=== PATIENT | female | born 1940 | race Caucasian/White ===

== ENCOUNTER 2021-03-21 04:57 | Inpatient (IN) | payer MEDICARE, OTHER ==
[~2021-03-21] VITALS: Ht 165.1 cm; Wt 61.3 kg
[~2021-03-21 04:57] MED LIST: DIOVAN; JANUVIA
[2021-03-21] MEDS ORDERED: FOSPHENYTOIN SODIUM 1,000 MGPE in SODIUM CHLORIDE 0.9% 100 ML IV ONE (05:15)
[2021-03-21] MEDS ORDERED: PHENYTOIN SODIUM 1,000 MG in SODIUM CHLORIDE 0.9% 150 ML IV ONE (05:15)
[2021-03-21] MEDS ORDERED: LORazepam 2 MG/ML VIAL IVP ONE ×3 (05:15→06:30)
[2021-03-21] MEDS ORDERED: SUCCINYLCHOLINE CHLORIDE 20 MG/ML 10 ML VIAL ONE (05:17)
[2021-03-21 05:20] LABS: BASOPHILS % (AUTO) 0.6 % (0.0-2.0); EOSINOPHILS % (AUTO) 1.3 % (1.0-6.0); HEMATOCRIT 36.4 % (36-46); LYMPHOCYTES # (AUTO) 2.3 K/uL (1.0-4.8); LYMPHOCYTES % (AUTO) 19.2 % (22.0-44.0); MEAN CORPUSCULAR HEMOGLOBIN 27.9 pg (26.0-34.0); MEAN CORPUSCULAR HGB CONC 32.8 G/dL (31.0-37.0); MEAN CORPUSCULAR VOLUME 85 fL (80-100); MONOCYTES # (AUTO) 0.6 K/uL (0.1-1.0); MONOCYTES % (AUTO) 4.6 % (2.0-9.0); NEUTROPHILS # (AUTO) 9.1 K/uL (1.8-7.7); NEUTROPHILS % (AUTO) 74.3 % (40.0-70.0); PLATELET COUNT (AUTO) 301 K/uL (150-450); RED BLOOD CELL COUNT(AUTO) 4.28 MIL/uL (4.00-5.20); RED CELL DISTRIBUTION WIDTH 13.6 % (11.5-14.5)
[2021-03-21 05:29] LABS: ANION GAP 12 mmol/L (8-16); CALCIUM, TOTAL 9.3 mg/dL (8.8-10.5); CARBON DIOXIDE 23 mmol/L (22-29); CHLORIDE 103 mmol/L (98-107); CREATININE 0.73 mg/dL (0.60-1.30); GLOMERULAR FILTR. RATE CALC > 60 mL/min (>60); GLUCOSE,RANDOM 193 mg/dL (70-110); POTASSIUM 3.6 mmol/L (3.5-5.1); SODIUM SERUM 138 mmol/L (136-145); UREA NITROGEN, BLOOD 18 mg/dL (7-18)
[2021-03-21] MEDS ORDERED: ETOMIDATE 2 MG/ML 10 ML VIAL IVP ONE (05:30)
[2021-03-21] MEDS ORDERED: SUCCINYLCHOLINE CHLORIDE 20 MG/ML 10 ML VIAL IVP ONE (05:30)
[2021-03-21 05:34] LABS: PROTHROMBIN TIME 10.9 SEC (9.4-11.6)
[2021-03-21] MEDS ORDERED: PROPOFOL 1000 MG/ISO-OSM 100 ML ONE (05:34)
[2021-03-21 05:35] LABS: ALANINE AMINOTRANSFERASE 22 U/L (12-78); ALBUMIN 2.9 g/dL (3.4-5.0); ALKALINE PHOSPHATASE 113 U/L (46-116); ASPARTATE AMINOTRANSFERASE 14 U/L (15-37); BILIRUBIN,TOTAL 0.5 mg/dL (0.1-1.0); TOTAL PROTEIN, SERUM 7.1 g/dL (6.4-8.2)
[2021-03-21 05:37] LABS: PHENYTOIN (DILANTIN) < 0.5 mcg/mL (10.0-20.0); VALPROIC ACID < 3 mcg/mL (50-100)
[2021-03-21 05:40] LABS: CARBAMAZEPINE (TEGRETOL) < 0.1 mcg/mL (4.0-12.0)
[2021-03-21] MEDS: PROPOFOL 1000 MG/ISO-OSM 100 ML IV PRN ×4 (05:45→19:47)
[2021-03-21 05:50] LABS: CREATINE KINASE, TOTAL ONLY 35 U/L (26-192); PHOSPHORUS 4.1 mg/dL (2.5-4.9)
[2021-03-21 05:55] LABS: ABG BASE EXCESS 1.6 mmol/L (-2.0-3.0); ABG CARBOXYHEMOGLOBIN 0.1 % (0.0-1.5); ABG HCO3 26.1 mmol/L (22.0-26.0); ABG METHEMOGLOBIN 0.3 % (0.0-1.5); ABG OXYGEN CONTENT 17.9 mL/dL (15.0-23.0); ABG OXYGEN SATURATION 99.2 % (95.0-98.0); ABG OXYHEMOGLOBIN 98.8 % (94.0-100.0); ABG PCO2 37 mmHg (35-45); ABG PH 7.459 (7.35-7.450); ABG TOTAL HEMOGLOBIN 11.9 G/dL (12.0-18.0); PO2, ARTERIAL BG 499.2 mmHg (71.0-79.0); SOURCE, BLOOD GAS ARTERIAL; TEMPERATURE, FAHRENHEIT, BG 98.6 FAHREN (96.0-98.6)
[2021-03-21 05:56] LABS: O2 DEVICE,BLOOD GAS VENTILATOR (ROOM AIR); PEEP,BG 5 cm H2O; SITE, BLOOD GAS RT RADIAL; SPONTANEOUS VT, BG 434 ml; VT, ABG 450 ml
[2021-03-21] MEDS ORDERED: METF-1211 PO (06:07)
[2021-03-21] MEDS ORDERED: POTA8CAP20 PO (06:07)
[2021-03-21] MEDS ORDERED: GABA-1181 PO (06:07)
[2021-03-21] MEDS ORDERED: HYDR25TA PO (06:07)
[2021-03-21] MEDS ORDERED: ELUX75TA PO (06:07)
[2021-03-21 06:32] LABS: COVID AG,FIA SOURCE NASAL SWAB
[2021-03-21 06:33] LABS: APPEARANCE,URINE CLEAR (CLEAR); BILIRUBIN,URINE NEGATIVE (NEGATIVE); GLUCOSE, URINE (UA) NEGATIVE (NEGATIVE); KETONES,URINE NEGATIVE (NEGATIVE); LEUKOCYTE ESTERASE ,URINE NEGATIVE (NEGATIVE); NITRATE,URINE NEGATIVE (NEGATIVE); OCCULT BLOOD,URINE NEGATIVE (NEGATIVE); PROTEIN,URINE NEGATIVE (NEGATIVE)
[2021-03-21 06:38] LABS: AMPHET/METH SCREEN,URINE NEGATIVE (NEGATIVE); BARBITURATE SCREEN, URINE NEGATIVE (NEGATIVE); BENZODIAZEPINES SCREEN,URINE NEGATIVE (NEGATIVE); CANNABINOID SCREEN,URINE NEGATIVE (NEGATIVE); COCAINE SCREEN,URINE NEGATIVE (NEGATIVE); METHADONE SCREEN, URINE NEGATIVE (NEGATIVE); OPIATE SCREEN,URINE NEGATIVE (NEGATIVE)
[2021-03-21 06:46] LABS: PHENCYCLIDINE SCREEN,URINE NEGATIVE (NEGATIVE)
[2021-03-21] MEDS ORDERED: BISACODYL 10 MG RECTAL RECTAL SUPPOSITORY PR PRN (10:15)
[2021-03-21] MEDS ORDERED: ONDANSETRON HCL 4 MG/2 ML VIAL IVP PRN (10:15)
[2021-03-21] MEDS ORDERED: DEXTROSE 50%-WATER 25 GM/50 ML SYRINGE IVP PRN (10:15)
[2021-03-21] MEDS ORDERED: LORazepam 2 MG/ML VIAL IVP PRN (10:15)
[2021-03-21 11:07] VITALS: BP 121/59
[2021-03-21 12:00] VITALS: BP 126/73
[2021-03-21] MEDS: PANTOPRAZOLE SODIUM 40 MG/VIAL IVP SCH (14:27)
[2021-03-21] MEDS: LevETIRAcetam 1,000 MG in DEXTROSE 5%-WATER 100 ML IV SCH (14:27)
[2021-03-21] MEDS ORDERED: PNEUMOCOCCAL VACCINE POLYVALENT 0.5 ML VIAL [PPSV23] IM. ONE (15:30)
[2021-03-21 16:00] VITALS: BP 127/73
[2021-03-21] MEDS ORDERED: ETOMIDATE 2 MG/ML 10 ML VIAL IV ONE (16:41)
[2021-03-21 16:47] LABS: GLUCOSE,POINT OF CARE 121 MG/DL (70-110)
[2021-03-21] MEDS: HEPARIN SODIUM,PORCINE 5,000 UNITS/ML VIAL SQ SCH ×2 (17:09→23:42)
[2021-03-21] MEDS: FentaNYL CIT 1000MCG/0.9% NACL 100 ML IV PRN (19:48)
[2021-03-21 20:00] VITALS: BP_SYST 103; BP_SYST 107; BP_DIAS 56
[2021-03-21 20:16] LABS: GLUCOSE,POINT OF CARE 139 MG/DL (70-110)
[2021-03-21] MEDS: ETHYL ALCOHOL 62% ANTISEPTIC NASAL INHALANT 0.6 ML AMPUL NASAL SCH (23:42)
[2021-03-21] MEDS: INSULIN LISPRO 100 UNITS/ML SQ PRN (23:55)
[2021-03-22] VITALS: BP 115/91
[2021-03-22] MEDS: LevETIRAcetam 1,000 MG in DEXTROSE 5%-WATER 100 ML IV SCH ×2 (01:02→12:49)
[2021-03-22] MEDS: PROPOFOL 1000 MG/ISO-OSM 100 ML IV PRN ×3 (01:25→23:19)
[2021-03-22 04:00] VITALS: BP 122/68
[2021-03-22 05:26] LABS: GLUCOSE,POINT OF CARE 155 MG/DL (70-110)
[2021-03-22] MEDS ORDERED: SODIUM CHLORIDE 0.9% 1,000 ML ONE ×2 (05:54→18:08)
[2021-03-22 05:56] LABS: GLUCOSE,POINT OF CARE 85 MG/DL (70-110)
[2021-03-22 06:21] LABS: ANION GAP 6 mmol/L (8-16); CALCIUM, TOTAL 6.1 mg/dL (8.8-10.5); CARBON DIOXIDE 20 mmol/L (22-29); CHLORIDE 116 mmol/L (98-107); CREATININE 0.32 mg/dL (0.60-1.30); GLUCOSE,RANDOM 83 mg/dL (70-110); PHOSPHORUS 2.3 mg/dL (2.5-4.9); SODIUM SERUM 142 mmol/L (136-145); UREA NITROGEN, BLOOD 8 mg/dL (7-18)
[2021-03-22 06:23] LABS: GLOMERULAR FILTR. RATE CALC > 60 mL/min (>60)
[2021-03-22 06:25] LABS: POTASSIUM 2.2 mmol/L (3.5-5.1)
[2021-03-22 07:31] LABS: BASOPHILS % (AUTO) 0.6 % (0.0-2.0); EOSINOPHILS % (AUTO) 0.9 % (1.0-6.0); HEMATOCRIT 26.9 % (36-46); LYMPHOCYTES # (AUTO) 1.2 K/uL (1.0-4.8); LYMPHOCYTES % (AUTO) 19.6 % (22.0-44.0); MEAN CORPUSCULAR HEMOGLOBIN 28.1 pg (26.0-34.0); MEAN CORPUSCULAR HGB CONC 32.9 G/dL (31.0-37.0); MEAN CORPUSCULAR VOLUME 85 fL (80-100); MONOCYTES # (AUTO) 0.5 K/uL (0.1-1.0); MONOCYTES % (AUTO) 8.7 % (2.0-9.0); NEUTROPHILS # (AUTO) 4.3 K/uL (1.8-7.7); NEUTROPHILS % (AUTO) 70.2 % (40.0-70.0); PLATELET COUNT (AUTO) 201 K/uL (150-450); RED BLOOD CELL COUNT(AUTO) 3.14 MIL/uL (4.00-5.20); RED CELL DISTRIBUTION WIDTH 13.9 % (11.5-14.5)
[2021-03-22 07:32] LABS: HEMOGLOBIN 8.8 g/dL (12.0-16.0)
[2021-03-22 08:00] VITALS: BP 148/66
[2021-03-22] MEDS: ASPIRIN 81 MG CHEWABLE TABLET NG SCH (08:07)
[2021-03-22] MEDS: PANTOPRAZOLE SODIUM 40 MG/VIAL IVP SCH (08:07)
[2021-03-22] MEDS: HEPARIN SODIUM,PORCINE 5,000 UNITS/ML VIAL SQ SCH (08:07)
[2021-03-22] MEDS: ETHYL ALCOHOL 62% ANTISEPTIC NASAL INHALANT 0.6 ML AMPUL NASAL SCH ×2 (08:08→21:28)
[2021-03-22] MEDS: POTASSIUM CHL 10 MEQ/WATER 50 ML IV PRN ×7 (08:08→21:26)
[2021-03-22] MEDS ORDERED: MAGNESIUM OXIDE 400 MG TABLET PO PRN (08:30)
[2021-03-22] MEDS ORDERED: MAGNESIUM SULFATE 2 GM/WATER 50 ML IV PRN (08:30)
[2021-03-22] MEDS ORDERED: MAGNESIUM SULFATE 4 GM/WATER 100 ML IV PRN (08:30)
[2021-03-22] MEDS ORDERED: ATORVASTATIN CALCIUM 20 MG TABLET NG SCH (09:00)
[2021-03-22 10:35] LABS: ALBUMIN 1.6 g/dL (3.4-5.0)
[2021-03-22 12:00] VITALS: BP 124/57
[2021-03-22 15:21] LABS: GLUCOSE,POINT OF CARE 116 MG/DL (70-110)
[2021-03-22 16:00] VITALS: BP 134/66
[2021-03-22] MEDS: ACETAMINOPHEN 325 MG TABLET PO PRN (17:07)
[2021-03-22] MEDS ORDERED: DOCUSATE SODIUM 100 MG CAPSULE PO PRN (17:15)
[2021-03-22] MEDS ORDERED: SENNA 187 MG TABLET PO PRN (17:15)
[2021-03-22] MEDS: INSULIN LISPRO 100 UNITS/ML SQ PRN (18:22)
[2021-03-22] MEDS ORDERED: POTASSIUM CHLORIDE 10% 40 MEQ/30 ML LIQUID UDCUP GT PRN (19:00)
[2021-03-22] MEDS ORDERED: POTASSIUM CHLORIDE 10% 40 MEQ/30 ML LIQUID UDCUP NG PRN (19:00)
[2021-03-22 20:00] VITALS: BP_SYST 92; BP_DIAS 53; BP_DIAS 62
[2021-03-22 20:11] LABS: GLUCOSE,POINT OF CARE 143 MG/DL (70-110)
[2021-03-22] MEDS: FentaNYL CIT 1000MCG/0.9% NACL 100 ML IV PRN (23:19)
[2021-03-23] VITALS (12 sets, daily range): BP systolic 85–135; BP diastolic 41–76
[2021-03-23] MEDS: LevETIRAcetam 1,000 MG in DEXTROSE 5%-WATER 100 ML IV SCH ×2 (01:39→13:42)
[2021-03-23 02:01] LABS: GLUCOSE,POINT OF CARE 119 MG/DL (70-110)
[2021-03-23 05:29] LABS: BASOPHILS % (AUTO) 1.3 % (0.0-2.0); EOSINOPHILS % (AUTO) 1.4 % (1.0-6.0); HEMATOCRIT 30.4 % (36-46); HEMOGLOBIN 10.6 g/dL (12.0-16.0); LYMPHOCYTES # (AUTO) 1.9 K/uL (1.0-4.8); LYMPHOCYTES % (AUTO) 21.4 % (22.0-44.0); MEAN CORPUSCULAR HEMOGLOBIN 29.1 pg (26.0-34.0); MEAN CORPUSCULAR HGB CONC 34.8 G/dL (31.0-37.0); MEAN CORPUSCULAR VOLUME 84 fL (80-100); MONOCYTES # (AUTO) 0.6 K/uL (0.1-1.0); MONOCYTES % (AUTO) 6.5 % (2.0-9.0); NEUTROPHILS % (AUTO) 69.4 % (40.0-70.0); PLATELET COUNT (AUTO) 244 K/uL (150-450); RED BLOOD CELL COUNT(AUTO) 3.63 MIL/uL (4.00-5.20); RED CELL DISTRIBUTION WIDTH 14.1 % (11.5-14.5)
[2021-03-23 05:38] LABS: ANION GAP 8 mmol/L (8-16); CALCIUM, TOTAL 8.4 mg/dL (8.8-10.5); CARBON DIOXIDE 22 mmol/L (22-29); CHLORIDE 106 mmol/L (98-107); CREATININE 0.54 mg/dL (0.60-1.30); GLUCOSE,RANDOM 145 mg/dL (70-110); POTASSIUM 3.2 mmol/L (3.5-5.1); SODIUM SERUM 136 mmol/L (136-145)
[2021-03-23 05:49] LABS: UREA NITROGEN, BLOOD 12 mg/dL (7-18)
[2021-03-23 05:51] LABS: GLOMERULAR FILTR. RATE CALC > 60 mL/min (>60)
[2021-03-23 06:26] LABS: GLUCOSE,POINT OF CARE 105 MG/DL (70-110)
[2021-03-23] MEDS: PANTOPRAZOLE SODIUM 40 MG/VIAL IVP SCH (08:50)
[2021-03-23] MEDS: ETHYL ALCOHOL 62% ANTISEPTIC NASAL INHALANT 0.6 ML AMPUL NASAL SCH ×2 (08:51→21:10)
[2021-03-23] MEDS: ASPIRIN 81 MG CHEWABLE TABLET NG SCH (08:51)
[2021-03-23 12:26] LABS: GLUCOSE,POINT OF CARE 112 MG/DL (70-110)
[2021-03-23] MEDS: PROPOFOL 1000 MG/ISO-OSM 100 ML IV PRN ×2 (14:00→21:09)
[2021-03-23] MEDS: FentaNYL CIT 1000MCG/0.9% NACL 100 ML IV PRN (14:01)
[2021-03-23 14:48] LABS: ANION GAP 12 mmol/L (8-16); CALCIUM, TOTAL 9.1 mg/dL (8.8-10.5); CARBON DIOXIDE 17 mmol/L (22-29); CHLORIDE 106 mmol/L (98-107); CREATININE 0.51 mg/dL (0.60-1.30); GLOMERULAR FILTR. RATE CALC > 60 mL/min (>60); GLUCOSE,RANDOM 134 mg/dL (70-110); POTASSIUM 4.6 mmol/L (3.5-5.1); SODIUM SERUM 135 mmol/L (136-145); UREA NITROGEN, BLOOD 13 mg/dL (7-18)
[2021-03-23] MEDS ORDERED: THIAMINE 100 MG TABLET PO ONE (15:45)
[2021-03-23 18:26] LABS: GLUCOSE,POINT OF CARE 120 MG/DL (70-110)
[2021-03-23] MEDS ORDERED: SODIUM CHLORIDE 0.9% 250 ML IV ONE (21:02)
[2021-03-23] MEDS: ATORVASTATIN CALCIUM 20 MG TABLET NG SCH (21:10)
[2021-03-24] VITALS (10 sets, daily range): BP systolic 99–133; BP diastolic 47–72
[2021-03-24] MEDS: LevETIRAcetam 1,000 MG in DEXTROSE 5%-WATER 100 ML IV SCH ×2 (01:02→13:28)
[2021-03-24] MEDS: FentaNYL CIT 1000MCG/0.9% NACL 100 ML IV PRN ×2 (04:02→17:22)
[2021-03-24 06:37] LABS: GLUCOSE,POINT OF CARE 108 MG/DL (70-110)
[2021-03-24] MEDS: INSULIN LISPRO 100 UNITS/ML SQ PRN (06:42)
[2021-03-24 06:46] LABS: GLUCOSE,POINT OF CARE 133 MG/DL (70-110)
[2021-03-24] MEDS: PROPOFOL 1000 MG/ISO-OSM 100 ML IV PRN ×2 (07:40→20:29)
[2021-03-24] MEDS: PANTOPRAZOLE SODIUM 40 MG/VIAL IVP SCH (08:00)
[2021-03-24] MEDS: THIAMINE 100 MG TABLET PO SCH (08:00)
[2021-03-24] MEDS: ETHYL ALCOHOL 62% ANTISEPTIC NASAL INHALANT 0.6 ML AMPUL NASAL SCH ×2 (08:01→20:28)
[2021-03-24] MEDS: ASPIRIN 81 MG CHEWABLE TABLET NG SCH (08:01)
[2021-03-24] MEDS: ACETAMINOPHEN 325 MG TABLET PO PRN ×2 (08:01→12:53)
[2021-03-24 10:09] LABS: BASOPHILS % (AUTO) 0.5 % (0.0-2.0); EOSINOPHILS % (AUTO) 1.9 % (1.0-6.0); HEMATOCRIT 31.8 % (36-46); HEMOGLOBIN 10.9 g/dL (12.0-16.0); LYMPHOCYTES % (AUTO) 12.1 % (22.0-44.0); MEAN CORPUSCULAR HEMOGLOBIN 28.6 pg (26.0-34.0); MEAN CORPUSCULAR HGB CONC 34.1 G/dL (31.0-37.0); MEAN CORPUSCULAR VOLUME 84 fL (80-100); MONOCYTES # (AUTO) 0.5 K/uL (0.1-1.0); MONOCYTES % (AUTO) 5.5 % (2.0-9.0); NEUTROPHILS # (AUTO) 6.7 K/uL (1.8-7.7); PLATELET COUNT (AUTO) 257 K/uL (150-450); RED BLOOD CELL COUNT(AUTO) 3.79 MIL/uL (4.00-5.20)
[2021-03-24 10:17] LABS: ANION GAP 10 mmol/L (8-16); CALCIUM, TOTAL 8.5 mg/dL (8.8-10.5); CARBON DIOXIDE 20 mmol/L (22-29); CHLORIDE 105 mmol/L (98-107); CREATININE 0.52 mg/dL (0.60-1.30); GLUCOSE,RANDOM 159 mg/dL (70-110); POTASSIUM 3.5 mmol/L (3.5-5.1); SODIUM SERUM 135 mmol/L (136-145); UREA NITROGEN, BLOOD 13 mg/dL (7-18)
[2021-03-24 10:19] LABS: MAGNESIUM 1.9 mg/dL (1.80-2.40); POTASSIUM 3.6 mmol/L (3.5-5.1)
[2021-03-24 10:21] LABS: GLOMERULAR FILTR. RATE CALC > 60 mL/min (>60)
[2021-03-24 16:30] LABS: APPEARANCE,URINE SL CLOUDY (CLEAR); BILIRUBIN,URINE PRELIM. POSITIVE (NEGATIVE); GLUCOSE, URINE (UA) NEGATIVE (NEGATIVE); KETONES,URINE >=80 mg/dL (NEGATIVE); LEUKOCYTE ESTERASE ,URINE SMALL (NEGATIVE); NITRATE,URINE POSITIVE (NEGATIVE); OCCULT BLOOD,URINE SMALL (NEGATIVE); PROTEIN,URINE TRACE (NEGATIVE)
[2021-03-24 16:59] LABS: BACTERIA,URINE Rare /HPF (None Seen); SQUAMOUS EPITHELIAL CELL,UR Few /LPF (None Seen)
[2021-03-24] MEDS ORDERED: DEXMEDETOMIDINE HCL 400 MCG in SODIUM CHLORIDE 0.9% 96 ML IV PRN (18:00)
[2021-03-24] MEDS: ATORVASTATIN CALCIUM 20 MG TABLET NG SCH (20:28)
[2021-03-24] MEDS: PIPERACILLIN/TAZO 3.375 GM/D5W 50 ML IV SCH (20:33)
[2021-03-24 20:57] LABS: GLUCOSE,POINT OF CARE 121 MG/DL (70-110)
[2021-03-24 20:57] LABS: GLUCOSE,POINT OF CARE 130 MG/DL (70-110)
[2021-03-25] VITALS (10 sets, daily range): BP systolic 97–122; BP diastolic 48–61
[2021-03-25] MEDS: LevETIRAcetam 1,000 MG in DEXTROSE 5%-WATER 100 ML IV SCH ×2 (01:24→13:11)
[2021-03-25] MEDS: PIPERACILLIN/TAZO 3.375 GM/D5W 50 ML IV SCH ×4 (04:00→19:40)
[2021-03-25] MEDS: PROPOFOL 1000 MG/ISO-OSM 100 ML IV PRN (04:01)
[2021-03-25] MEDS: ACETAMINOPHEN 325 MG TABLET PO PRN ×3 (04:11→17:21)
[2021-03-25 05:21] LABS: GLUCOSE,POINT OF CARE 150 MG/DL (70-110)
[2021-03-25] MEDS: INSULIN LISPRO 100 UNITS/ML SQ PRN ×3 (05:31→18:50)
[2021-03-25 05:32] LABS: BASOPHILS % (AUTO) 0.3 % (0.0-2.0); EOSINOPHILS % (AUTO) 0.9 % (1.0-6.0); HEMATOCRIT 30.1 % (36-46); HEMOGLOBIN 10.2 g/dL (12.0-16.0); LYMPHOCYTES # (AUTO) 1.1 K/uL (1.0-4.8); LYMPHOCYTES % (AUTO) 6.5 % (22.0-44.0); MEAN CORPUSCULAR HEMOGLOBIN 28.5 pg (26.0-34.0); MEAN CORPUSCULAR HGB CONC 33.9 G/dL (31.0-37.0); MEAN CORPUSCULAR VOLUME 84 fL (80-100); MONOCYTES # (AUTO) 0.7 K/uL (0.1-1.0); MONOCYTES % (AUTO) 4.1 % (2.0-9.0); PLATELET COUNT (AUTO) 252 K/uL (150-450); RED BLOOD CELL COUNT(AUTO) 3.59 MIL/uL (4.00-5.20); RED CELL DISTRIBUTION WIDTH 13.9 % (11.5-14.5)
[2021-03-25 05:36] LABS: NEUTROPHILS % (AUTO) 88.2 % (40.0-70.0)
[2021-03-25 05:52] LABS: ANION GAP 7 mmol/L (8-16); CALCIUM, TOTAL 8.5 mg/dL (8.8-10.5); CARBON DIOXIDE 23 mmol/L (22-29); CHLORIDE 102 mmol/L (98-107); CREATININE 0.61 mg/dL (0.60-1.30); GLUCOSE,RANDOM 180 mg/dL (70-110); PHOSPHORUS 3.2 mg/dL (2.5-4.9); POTASSIUM 3.5 mmol/L (3.5-5.1); SODIUM SERUM 132 mmol/L (136-145); UREA NITROGEN, BLOOD 15 mg/dL (7-18)
[2021-03-25 05:54] LABS: GLOMERULAR FILTR. RATE CALC > 60 mL/min (>60)
[2021-03-25] MEDS: ASPIRIN 81 MG CHEWABLE TABLET NG SCH (09:37)
[2021-03-25] MEDS: PANTOPRAZOLE SODIUM 40 MG/VIAL IVP SCH (09:37)
[2021-03-25] MEDS: ETHYL ALCOHOL 62% ANTISEPTIC NASAL INHALANT 0.6 ML AMPUL NASAL SCH ×2 (09:37→21:14)
[2021-03-25] MEDS: THIAMINE 100 MG TABLET PO SCH (09:38)
[2021-03-25 13:00] LABS: GLUCOSE,POINT OF CARE 149 MG/DL (70-110)
[2021-03-25 18:57] LABS: GLUCOSE,POINT OF CARE 172 MG/DL (70-110)
[2021-03-25] MEDS: FentaNYL CIT 1000MCG/0.9% NACL 100 ML IV PRN (18:57)
[2021-03-25] MEDS: ATORVASTATIN CALCIUM 20 MG TABLET NG SCH (21:14)
[2021-03-26] VITALS: BP 106/49
[2021-03-26] MEDS: INSULIN LISPRO 100 UNITS/ML SQ PRN ×3 (00:07→13:11)
[2021-03-26] MEDS: LevETIRAcetam 1,000 MG in DEXTROSE 5%-WATER 100 ML IV SCH ×2 (00:07→13:13)
[2021-03-26] MEDS: FentaNYL CIT 1000MCG/0.9% NACL 100 ML IV PRN (00:12)
[2021-03-26 00:21] LABS: GLUCOSE,POINT OF CARE 182 MG/DL (70-110)
[2021-03-26] MEDS: PIPERACILLIN/TAZO 3.375 GM/D5W 50 ML IV SCH ×4 (01:29→20:00)
[2021-03-26 04:00] VITALS: BP 128/58
[2021-03-26] MEDS: ACETAMINOPHEN 325 MG TABLET PO PRN (05:07)
[2021-03-26 08:00] VITALS: BP 124/52
[2021-03-26] MEDS: ASPIRIN 81 MG CHEWABLE TABLET NG SCH (08:18)
[2021-03-26] MEDS: SENNA 187 MG TABLET PO SCH (08:18)
[2021-03-26] MEDS: ETHYL ALCOHOL 62% ANTISEPTIC NASAL INHALANT 0.6 ML AMPUL NASAL SCH ×2 (08:18→20:01)
[2021-03-26] MEDS: THIAMINE 100 MG TABLET PO SCH (08:18)
[2021-03-26] MEDS: PANTOPRAZOLE SODIUM 40 MG/VIAL IVP SCH (08:20)
[2021-03-26 08:51] LABS: GLUCOSE,POINT OF CARE 154 MG/DL (70-110)
[2021-03-26 09:01] LABS: BASOPHILS % (AUTO) 0.5 % (0.0-2.0); EOSINOPHILS % (AUTO) 1.4 % (1.0-6.0); HEMATOCRIT 30.9 % (36-46); HEMOGLOBIN 10.3 g/dL (12.0-16.0); LYMPHOCYTES # (AUTO) 1.6 K/uL (1.0-4.8); LYMPHOCYTES % (AUTO) 12.9 % (22.0-44.0); MEAN CORPUSCULAR HEMOGLOBIN 28.5 pg (26.0-34.0); MEAN CORPUSCULAR HGB CONC 33.5 G/dL (31.0-37.0); MEAN CORPUSCULAR VOLUME 85 fL (80-100); MONOCYTES # (AUTO) 0.9 K/uL (0.1-1.0); MONOCYTES % (AUTO) 6.8 % (2.0-9.0); NEUTROPHILS # (AUTO) 9.9 K/uL (1.8-7.7); NEUTROPHILS % (AUTO) 78.4 % (40.0-70.0); PLATELET COUNT (AUTO) 258 K/uL (150-450); RED BLOOD CELL COUNT(AUTO) 3.63 MIL/uL (4.00-5.20); RED CELL DISTRIBUTION WIDTH 14.2 % (11.5-14.5)
[2021-03-26 09:15] LABS: ALANINE AMINOTRANSFERASE 88 U/L (12-78); ALBUMIN 1.8 g/dL (3.4-5.0); ALKALINE PHOSPHATASE 147 U/L (46-116); ANION GAP 4 mmol/L (8-16); ASPARTATE AMINOTRANSFERASE 71 U/L (15-37); BILIRUBIN,TOTAL 0.3 mg/dL (0.1-1.0); CALCIUM, TOTAL 8.7 mg/dL (8.8-10.5); CARBON DIOXIDE 26 mmol/L (22-29); CHLORIDE 103 mmol/L (98-107); GLUCOSE,RANDOM 169 mg/dL (70-110); PHOSPHORUS 2.7 mg/dL (2.5-4.9); POTASSIUM 3.6 mmol/L (3.5-5.1); SODIUM SERUM 133 mmol/L (136-145); TOTAL PROTEIN, SERUM 6.6 g/dL (6.4-8.2); UREA NITROGEN, BLOOD 16 mg/dL (7-18)
[2021-03-26 09:18] LABS: GLOMERULAR FILTR. RATE CALC > 60 mL/min (>60)
[2021-03-26 10:57] LABS: ABG A-A DIFF O2 69.2 mmHg (10-20.0); ABG CARBOXYHEMOGLOBIN 0.4 % (0.0-1.5); ABG HCO3 23.8 mmol/L (22.0-26.0); ABG METHEMOGLOBIN 0.3 % (0.0-1.5); ABG OXYGEN CONTENT 15.3 mL/dL (15.0-23.0); ABG OXYGEN SATURATION 98.4 % (95.0-98.0); ABG OXYHEMOGLOBIN 97.7 % (94.0-100.0); ABG PCO2 40 mmHg (35-45); ABG PH 7.398 (7.35-7.450); CPAP, BG 5 cm H2O; O2 DEVICE,BLOOD GAS VENTILATOR (ROOM AIR); PO2, ARTERIAL BG 133.7 mmHg (71.0-79.0); PRESSURE SUPPORT, BG 8 cm H2O; SITE, BLOOD GAS LFT RADIAL; SOURCE, BLOOD GAS ARTERIAL; SPONTANEOUS VT, BG 367 ml; TEMPERATURE, FAHRENHEIT, BG 99.9 FAHREN (96.0-98.6); VENT MODE, BG CPAP (ROOM AIR)
[2021-03-26 12:00] VITALS: BP 124/63
[2021-03-26 13:30] LABS: GLUCOSE,POINT OF CARE 152 MG/DL (70-110)
[2021-03-26 16:00] VITALS: BP 104/52
[2021-03-26 19:41] LABS: GLUCOSE,POINT OF CARE 123 MG/DL (70-110)
[2021-03-26 20:00] VITALS: BP 126/55
[2021-03-26] MEDS: ATORVASTATIN CALCIUM 20 MG TABLET NG SCH (20:03)
[2021-03-26] MEDS: DOCUSATE SODIUM 100 MG CAPSULE PO SCH (20:03)
[2021-03-26 23:16] LABS: GLUCOSE,POINT OF CARE 112 MG/DL (70-110)
[2021-03-27] VITALS: BP 112/53
[2021-03-27] MEDS: LevETIRAcetam 1,000 MG in DEXTROSE 5%-WATER 100 ML IV SCH ×2 (02:30→13:47)
[2021-03-27] MEDS: PIPERACILLIN/TAZO 3.375 GM/D5W 50 ML IV SCH ×4 (03:43→21:02)
[2021-03-27 04:00] VITALS: BP 116/46
[2021-03-27] MEDS: ETHYL ALCOHOL 62% ANTISEPTIC NASAL INHALANT 0.6 ML AMPUL NASAL SCH ×2 (07:55→21:02)
[2021-03-27] MEDS: PANTOPRAZOLE SODIUM 40 MG/VIAL IVP SCH (07:55)
[2021-03-27 08:00] VITALS: BP 106/49
[2021-03-27] MEDS: ASPIRIN 81 MG CHEWABLE TABLET NG SCH (08:51)
[2021-03-27] MEDS: SENNA 187 MG TABLET PO SCH (08:51)
[2021-03-27] MEDS: THIAMINE 100 MG TABLET PO SCH (08:51)
[2021-03-27 09:12] LABS: BASOPHILS % (AUTO) 0.7 % (0.0-2.0); EOSINOPHILS % (AUTO) 2.1 % (1.0-6.0); HEMATOCRIT 31.2 % (36-46); HEMOGLOBIN 10.6 g/dL (12.0-16.0); LYMPHOCYTES # (AUTO) 1.2 K/uL (1.0-4.8); LYMPHOCYTES % (AUTO) 13.3 % (22.0-44.0); MEAN CORPUSCULAR HEMOGLOBIN 28.8 pg (26.0-34.0); MEAN CORPUSCULAR HGB CONC 33.9 G/dL (31.0-37.0); MEAN CORPUSCULAR VOLUME 85 fL (80-100); MONOCYTES # (AUTO) 0.6 K/uL (0.1-1.0); MONOCYTES % (AUTO) 6.4 % (2.0-9.0); NEUTROPHILS # (AUTO) 6.8 K/uL (1.8-7.7); NEUTROPHILS % (AUTO) 77.5 % (40.0-70.0); PLATELET COUNT (AUTO) 317 K/uL (150-450); RED BLOOD CELL COUNT(AUTO) 3.68 MIL/uL (4.00-5.20); RED CELL DISTRIBUTION WIDTH 13.8 % (11.5-14.5)
[2021-03-27 09:30] LABS: ALANINE AMINOTRANSFERASE 80 U/L (12-78); ALBUMIN 1.9 g/dL (3.4-5.0); ALKALINE PHOSPHATASE 145 U/L (46-116); ANION GAP 9 mmol/L (8-16); ASPARTATE AMINOTRANSFERASE 66 U/L (15-37); BILIRUBIN,TOTAL 0.4 mg/dL (0.1-1.0); CALCIUM, TOTAL 9.3 mg/dL (8.8-10.5); CARBON DIOXIDE 27 mmol/L (22-29); CHLORIDE 105 mmol/L (98-107); CREATININE 0.57 mg/dL (0.60-1.30); GLOMERULAR FILTR. RATE CALC > 60 mL/min (>60); GLUCOSE,RANDOM 118 mg/dL (70-110); POTASSIUM 3.8 mmol/L (3.5-5.1); SODIUM SERUM 141 mmol/L (136-145); TOTAL PROTEIN, SERUM 6.5 g/dL (6.4-8.2); UREA NITROGEN, BLOOD 11 mg/dL (7-18)
[2021-03-27 12:00] VITALS: BP 117/56
[2021-03-27] MEDS: INSULIN LISPRO 100 UNITS/ML SQ PRN (14:18)
[2021-03-27 15:56] LABS: GLUCOSE,POINT OF CARE 158 MG/DL (70-110)
[2021-03-27 16:00] VITALS: BP 126/42
[2021-03-27 17:31] LABS: GLUCOSE,POINT OF CARE 107 MG/DL (70-110)
[2021-03-27] MEDS ORDERED: APIX5TAB PO (19:23)
[2021-03-27] MEDS ORDERED: SITA100 PO (19:23)
[2021-03-27] MEDS ORDERED: OMEP20CA12 PO (19:23)
[2021-03-27] MEDS ORDERED: ERGO500054 PO (19:23)
[2021-03-27] MEDS ORDERED: VANCOMYCIN HCL 1.25 GM in DEXTROSE 5%-WATER 250 ML IV ONE (19:30)
[2021-03-27] MEDS: DOCUSATE SODIUM 100 MG CAPSULE PO SCH (21:00)
[2021-03-27] MEDS: ATORVASTATIN CALCIUM 20 MG TABLET NG SCH (21:02)
[2021-03-28] MEDS: LevETIRAcetam 1,000 MG in DEXTROSE 5%-WATER 100 ML IV SCH ×2 (00:49→13:15)
[2021-03-28 01:22] VITALS: BP 126/55
[2021-03-28] MEDS: PIPERACILLIN/TAZO 3.375 GM/D5W 50 ML IV SCH ×4 (02:13→20:13)
[2021-03-28] MEDS: INSULIN LISPRO 100 UNITS/ML SQ PRN ×2 (03:56→21:24)
[2021-03-28 05:36] VITALS: BP 120/55
[2021-03-28 06:26] LABS: GLUCOMETER DEV NAME(LOC) 5N.1C; GLUCOSE,POINT OF CARE 135 MG/DL (70-110)
[2021-03-28 06:26] LABS: GLUCOMETER DEV NAME(LOC) 5N.1C; GLUCOSE,POINT OF CARE 161 MG/DL (70-110)
[2021-03-28] MEDS ORDERED: VANCOMYCIN HCL 1 GM/D5% WATER 200 ML IV SCH (07:00)
[2021-03-28] MEDS: THIAMINE 100 MG TABLET PO SCH ×2 (08:54→09:04)
[2021-03-28] MEDS: PANTOPRAZOLE SODIUM 40 MG/VIAL IVP SCH (08:54)
[2021-03-28] MEDS: SENNA 187 MG TABLET PO SCH (09:03)
[2021-03-28] MEDS: ASPIRIN 81 MG CHEWABLE TABLET NG SCH (09:04)
[2021-03-28] MEDS: ETHYL ALCOHOL 62% ANTISEPTIC NASAL INHALANT 0.6 ML AMPUL NASAL SCH ×2 (09:05→21:29)
[2021-03-28 09:16] LABS: GLUCOMETER DEV NAME(LOC) 5S.1B; GLUCOSE,POINT OF CARE 88 MG/DL (70-110)
[2021-03-28 10:29] VITALS: BP 123/48
[2021-03-28 11:11] LABS: GLUCOMETER DEV NAME(LOC) 5S.1B; GLUCOSE,POINT OF CARE 100 MG/DL (70-110)
[2021-03-28 17:07] VITALS: BP 118/57
[2021-03-28 18:06] LABS: GLUCOMETER DEV NAME(LOC) 5S.1B; GLUCOSE,POINT OF CARE 118 MG/DL (70-110)
[2021-03-28 19:46] VITALS: BP 122/61
[2021-03-28] MEDS: VANCOMYCIN HCL 750 MG in DEXTROSE 5%-WATER 250 ML IV SCH (20:12)
[2021-03-28] MEDS: ATORVASTATIN CALCIUM 20 MG TABLET NG SCH (20:12)
[2021-03-28] MEDS ORDERED: SODIUM CHLORIDE 0.9% 250 ML IV ONE (20:30)
[2021-03-28 22:01] LABS: GLUCOMETER DEV NAME(LOC) 5S.1B; GLUCOSE,POINT OF CARE 141 MG/DL (70-110)
[2021-03-29] MEDS: LevETIRAcetam 1,000 MG in DEXTROSE 5%-WATER 100 ML IV SCH ×3 (00:21→23:24)
[2021-03-29] MEDS: DOCUSATE SODIUM 100 MG CAPSULE PO SCH ×2 (00:39→20:18)
[2021-03-29 00:52] VITALS: BP 137/65
[2021-03-29] MEDS: PIPERACILLIN/TAZO 3.375 GM/D5W 50 ML IV SCH ×4 (01:45→20:19)
[2021-03-29 01:51] LABS: GLUCOMETER DEV NAME(LOC) 5S.1B; GLUCOSE,POINT OF CARE 131 MG/DL (70-110)
[2021-03-29 04:40] VITALS: BP 107/59
[2021-03-29 07:11] LABS: GLUCOMETER DEV NAME(LOC) 5S.1B; GLUCOSE,POINT OF CARE 106 MG/DL (70-110)
[2021-03-29] MEDS: THIAMINE 100 MG TABLET PO SCH (08:06)
[2021-03-29] MEDS: PANTOPRAZOLE SODIUM 40 MG/VIAL IVP SCH (08:06)
[2021-03-29] MEDS: ASPIRIN 81 MG CHEWABLE TABLET NG SCH (08:06)
[2021-03-29] MEDS: SENNA 187 MG TABLET PO SCH (08:06)
[2021-03-29] MEDS: VANCOMYCIN HCL 750 MG in DEXTROSE 5%-WATER 250 ML IV SCH ×2 (08:07→20:18)
[2021-03-29] MEDS: ETHYL ALCOHOL 62% ANTISEPTIC NASAL INHALANT 0.6 ML AMPUL NASAL SCH ×2 (08:08→20:19)
[2021-03-29 08:23] VITALS: BP 129/65
[2021-03-29 09:30] LABS: ALBUMIN 2.1 g/dL (3.4-5.0); ANION GAP 8 mmol/L (8-16); CALCIUM, TOTAL 9.5 mg/dL (8.8-10.5); CARBON DIOXIDE 26 mmol/L (22-29); CHLORIDE 105 mmol/L (98-107); CREATININE 0.47 mg/dL (0.60-1.30); GLOMERULAR FILTR. RATE CALC > 60 mL/min (>60); GLUCOSE,RANDOM 120 mg/dL (70-110); POTASSIUM 3.9 mmol/L (3.5-5.1); SODIUM SERUM 139 mmol/L (136-145); UREA NITROGEN, BLOOD 8 mg/dL (7-18); VANCOMYCIN,RANDOM 14.4 mcg/mL (25.0-50.0)
[2021-03-29 11:26] LABS: GLUCOMETER DEV NAME(LOC) 5S.1B; GLUCOSE,POINT OF CARE 160 MG/DL (70-110)
[2021-03-29 12:02] LABS: COVID AG,FIA SOURCE NASOPHARYNGEAL
[2021-03-29 12:49] VITALS: BP 130/51
[2021-03-29] MEDS: INSULIN LISPRO 100 UNITS/ML SQ PRN ×2 (13:24→16:53)
[2021-03-29 16:15] VITALS: BP 142/61
[2021-03-29 16:26] LABS: GLUCOMETER DEV NAME(LOC) 5N.1C; GLUCOSE,POINT OF CARE 162 MG/DL (70-110)
[2021-03-29] MEDS: ATORVASTATIN CALCIUM 20 MG TABLET NG SCH (20:17)
[2021-03-29 20:26] VITALS: BP 164/77
[2021-03-30 00:29] VITALS: BP 144/79
[2021-03-30] MEDS: PIPERACILLIN/TAZO 3.375 GM/D5W 50 ML IV SCH ×2 (02:16→10:54)
[2021-03-30 04:27] VITALS: BP 129/57
[2021-03-30 06:36] LABS: GLUCOMETER DEV NAME(LOC) 5N.1C; GLUCOSE,POINT OF CARE 129 MG/DL (70-110)
[2021-03-30 07:24] LABS: ANION GAP 6 mmol/L (8-16); CALCIUM, TOTAL 9.5 mg/dL (8.8-10.5); CARBON DIOXIDE 31 mmol/L (22-29); CHLORIDE 104 mmol/L (98-107); GLUCOSE,RANDOM 127 mg/dL (70-110); POTASSIUM 3.3 mmol/L (3.5-5.1); SODIUM SERUM 141 mmol/L (136-145); UREA NITROGEN, BLOOD 4 mg/dL (7-18); VANCOMYCIN,RANDOM 12.3 mcg/mL (25.0-50.0)
[2021-03-30 07:29] LABS: GLOMERULAR FILTR. RATE CALC > 60 mL/min (>60)
[2021-03-30 08:43] VITALS: BP 142/61
[2021-03-30 10:21] LABS: GLUCOMETER DEV NAME(LOC) 5N.1C; GLUCOSE,POINT OF CARE 116 MG/DL (70-110)
[2021-03-30] MEDS: ASPIRIN 81 MG CHEWABLE TABLET NG SCH ×2 (10:54→20:42)
[2021-03-30] MEDS: SENNA 187 MG TABLET PO SCH (10:55)
[2021-03-30] MEDS: ETHYL ALCOHOL 62% ANTISEPTIC NASAL INHALANT 0.6 ML AMPUL NASAL SCH (10:55)
[2021-03-30] MEDS: PANTOPRAZOLE SODIUM 40 MG/VIAL IVP SCH (10:55)
[2021-03-30] MEDS: THIAMINE 100 MG TABLET PO SCH ×2 (10:55→20:42)
[2021-03-30] MEDS: VANCOMYCIN HCL 750 MG in DEXTROSE 5%-WATER 250 ML IV SCH (11:34)
[2021-03-30 13:14] VITALS: BP 136/70
[2021-03-30 13:21] LABS: GLUCOMETER DEV NAME(LOC) 5N.1C; GLUCOSE,POINT OF CARE 172 MG/DL (70-110)
[2021-03-30] MEDS: INSULIN LISPRO 100 UNITS/ML SQ PRN ×2 (14:18→19:01)
[2021-03-30] MEDS: POTASSIUM CHL 10 MEQ/WATER 50 ML IV PRN ×3 (16:04→18:57)
[2021-03-30 16:36] LABS: GLUCOMETER DEV NAME(LOC) 5N.1C; GLUCOSE,POINT OF CARE 151 MG/DL (70-110)
[2021-03-30] MEDS: ATORVASTATIN CALCIUM 20 MG TABLET NG SCH (20:42)
[2021-03-30] MEDS: LevETIRAcetam 500 MG TABLET PO SCH (20:42)
[2021-03-30] MEDS: DOCUSATE SODIUM 100 MG CAPSULE PO SCH (20:42)
[2021-03-30 20:56] LABS: GLUCOMETER DEV NAME(LOC) 5S.1B; GLUCOSE,POINT OF CARE 127 MG/DL (70-110)
[2021-03-30 20:57] VITALS: BP 162/84
[2021-03-31 00:31] VITALS: BP 126/56
[2021-03-31 05:03] VITALS: BP 130/67
[2021-03-31 08:11] LABS: GLUCOMETER DEV NAME(LOC) 5S.1B; GLUCOSE,POINT OF CARE 100 MG/DL (70-110)
[2021-03-31 08:38] VITALS: BP 145/66
[2021-03-31] MEDS: SENNA 187 MG TABLET PO SCH (08:38)
[2021-03-31] MEDS: ETHYL ALCOHOL 62% ANTISEPTIC NASAL INHALANT 0.6 ML AMPUL NASAL SCH (08:38)
[2021-03-31] MEDS: PANTOPRAZOLE SODIUM 40 MG/VIAL IVP SCH (08:39)
[2021-03-31] MEDS: LevETIRAcetam 500 MG TABLET PO SCH (08:44)
[2021-03-31 11:46] LABS: GLUCOMETER DEV NAME(LOC) 5S.1B; GLUCOSE,POINT OF CARE 136 MG/DL (70-110)
[2021-03-31 12:44] VITALS: BP 149/75
[2021-03-31 15:49] VITALS: BP 152/69
[2021-03-31 16:16] LABS: GLUCOMETER DEV NAME(LOC) 5N.1C; GLUCOSE,POINT OF CARE 127 MG/DL (70-110)
== END 2021-03-31 17:55 | DRG 207 ==
LOC: EMS 04:58 → ICU 10:25 → 5N 03-27 22:10
PROVIDERS: ADMIT Internal Medicine; ATTEND Internal Medicine
PROC: 5A1955Z Respiratory Ventilation, Greater than 96 Consecutive Hours (ICD-10-PCS; principal; 2021-03-21)
PROC: 0BH17EZ Insertion of Endotracheal Airway into Trachea, Via Natural or Artificial Opening (ICD-10-PCS; 2021-03-21)
PROC: 05HD33Z Insertion of Infusion Device into Right Cephalic Vein, Percutaneous Approach (ICD-10-PCS; 2021-03-21)
PROC: 05HY33Z Insertion of Infusion Device into Upper Vein, Percutaneous Approach (ICD-10-PCS; 2021-03-29)
DX: J96.01 Acute respiratory failure with hypoxia (principal); J18.9 Pneumonia, unspecified organism; E87.1 Hypo-osmolality and hyponatremia; Z99.11 Dependence on respirator [ventilator] status; I69.351 Hemiplegia and hemiparesis following cerebral infarction affecting right dominant side; G40.901 Epilepsy, unspecified, not intractable, with status epilepticus; E11.9 Type 2 diabetes mellitus without complications; I10 Essential (primary) hypertension; E87.6 Hypokalemia; E83.42 Hypomagnesemia; E83.39 Other disorders of phosphorus metabolism; F01.50 Vascular dementia, unspecified severity, without behavioral disturbance, psychotic disturbance, mood disturbance, and anxiety; D63.8 Anemia in other chronic diseases classified elsewhere; G93.89 Other specified disorders of brain; F32.A Depression, unspecified; Z88.5 Allergy status to narcotic agent; Z79.899 Other long term (current) drug therapy; Z90.49 Acquired absence of other specified parts of digestive tract; Z90.710 Acquired absence of both cervix and uterus; Z20.822 Contact with and (suspected) exposure to COVID-19
CPT/HCPCS: 31500; 36245; 36569; 36600; 51702; 70450; 70551; 71045; 76937; 80048; 80053; 80156; 80164; 80185; 80202; 81001; 81003; 82040; 82330; 82550; 82805; 82962; 83735; 84100; 84132; 84484; 85025; 85610; 85730; 87040; 87070; 87081; 87086; 87205; 92526; 93005; 93306; 94002; 94003; 95816; 97112; 97162; 97163; 97167; 97530; 97535; 99291; C9113; G0378; G0480; J0330; J0712; J1165; J1644; J2060; J2543; J2704; J3370; J3475; J3480; J3490; J7030; J7050; J7060; Q2009; Q9967; 36415-L1; 36415-TC

== ENCOUNTER 2024-06-05 17:06 | Inpatient (IN) | payer MEDICARE, OTHER ==
[2024-06-04 21:45] VITALS: BP 135/56; PULSE 63; RESP 16; TEMP 97.9; O2SAT 97
[~2024-06-05] VITALS: Ht 154.9 cm; Wt 57.0 kg
[~2024-06-05 17:06] MED LIST changes: +APIX5TAB PO; -DIOVAN; +ERGO500054 PO; -JANUVIA; +METF-1211 PO; +OMEP20CA12 PO; +POTA8CAP20 PO
[2024-06-05 17:29] LABS: HEMATOCRIT 40.3 % (36-46); HEMOGLOBIN 13.3 g/dL (12.0-16.0); MEAN CORPUSCULAR HEMOGLOBIN 31.2 pg (26.0-34.0); MEAN CORPUSCULAR VOLUME 95 fL (80-100); PLATELET COUNT (AUTO) 248 K/uL (150-450); RED BLOOD CELL COUNT(AUTO) 4.26 MIL/uL (4.00-5.20); RED CELL DISTRIBUTION WIDTH 12.6 % (11.5-14.5)
[2024-06-05] MEDS ORDERED: IOHEXOL 350 MG/ML 100 ML VIAL ONE (17:35)
[2024-06-05] MEDS ORDERED: 0.9% SODIUM CHLORIDE 10 ML SYRINGE IVP ONE (17:35)
[2024-06-05] MEDS ORDERED: SODIUM CHLORIDE 0.9% 100 ML ONE (17:35)
[2024-06-05 17:41] LABS: ANION GAP 18 mmol/L (8-16); CALCIUM, TOTAL 9.6 mg/dL (8.8-10.5); CARBON DIOXIDE 18 mmol/L (22-29); CHLORIDE 106 mmol/L (98-107); CREATININE 0.64 mg/dL (0.60-1.30); GLOMERULAR FILTR. RATE CALC > 60 mL/min (>60); GLUCOSE,RANDOM 127 mg/dL (70-110); POTASSIUM 3.7 mmol/L (3.5-5.1); SODIUM SERUM 142 mmol/L (136-145); UREA NITROGEN, BLOOD 15 mg/dL (7-18)
[2024-06-05 17:44] LABS: BILIRUBIN,DIRECT 0.1 mg/dL (0.00-0.20); BILIRUBIN,TOTAL 0.4 mg/dL (0.1-1.0); TOTAL PROTEIN, SERUM 7.1 g/dL (6.4-8.2)
[2024-06-05 17:45] LABS: ALANINE AMINOTRANSFERASE 16 U/L (12-78); ALKALINE PHOSPHATASE 132 U/L (46-116); ASPARTATE AMINOTRANSFERASE 23 U/L (15-37); BILIRUBIN,TOTAL 0.4 mg/dL (0.1-1.0); TOTAL PROTEIN, SERUM 7.2 g/dL (6.4-8.2)
[2024-06-05 17:46] LABS: PROTHROMBIN TIME 10.9 SEC (9.4-11.6)
[2024-06-05 17:49] LABS: B-TYPE NATRIURETIC PEPTIDE 87 pg/mL (0-100)
[2024-06-05 17:50] LABS: CREATINE KINASE, TOTAL ONLY 38 U/L (26-192); TROPONIN I-HIGH SENSITIVITY 9 ng/L (<51)
[2024-06-05] MEDS: LevETIRAcetam 1,000 MG in DEXTROSE 5%-WATER 100 ML IV ONE (17:55)
[2024-06-05 17:56] LABS: BAND NEUTROPHILS % (MANUAL) 4 % (0-5); EOSINOPHILS % (MANUAL) 2 % (1-6); LYMPHOCYTES % (MANUAL) 59 % (22-44); MONOCYTES % (MANUAL) 7 % (2-9); SEGMENTED NEUTROPHILS % 28 % (40-70); TOTAL CELLS COUNTED 100
[2024-06-05 18:35] LABS: CHOL/HDL RATIO 2.5 (3.9-5.7)
[2024-06-05 18:36] LABS: HEMOGLOBIN A1C 4.8 % (3.8-5.6)
[2024-06-05] MEDS ORDERED: LOSA-381 PO (18:47)
[2024-06-05] MEDS ORDERED: LACO50TA16 PO (18:47)
[2024-06-05] MEDS ORDERED: CITA-144 PO (18:47)
[2024-06-05] MEDS ORDERED: APIX2.5T PO (18:47)
[2024-06-05] MEDS ORDERED: PANT-31 PO (18:47)
[2024-06-05] MEDS ORDERED: [UNRECOGNIZED DRUG - CODE] PO (18:47)
[2024-06-05] MEDS ORDERED: BACL10TA PO (18:47)
[2024-06-05] MEDS ORDERED: DEXTROSE 50%-WATER 25 GM/50 ML SYRINGE IVP PRN (19:45)
[2024-06-05] MEDS ORDERED: ONDANSETRON HCL 4 MG/2 ML VIAL IVP PRN (19:45)
[2024-06-05] MEDS ORDERED: LORazepam 2 MG/ML VIAL IVP PRN (19:45)
[2024-06-05] MEDS: ACETAMINOPHEN 650 MG/ISO-OSM 65 ML IV ONE (19:54)
[2024-06-05] MEDS: SODIUM CHLORIDE 0.9% 1,000 ML IV ONE (20:13)
[2024-06-05] MEDS: DOCUSATE SODIUM 100 MG CAPSULE PO SCH (20:26)
[2024-06-06 00:10] LABS: TROPONIN I-HIGH SENSITIVITY 60 ng/L (<51)
[2024-06-06 00:18] VITALS: BP 123/55; PULSE 60; RESP 18; TEMP 97.3; O2SAT 97
[2024-06-06] MEDS: HEPARIN SODIUM,PORCINE 5,000 UNITS/ML VIAL SQ SCH (00:34)
[2024-06-06 02:45] LABS: GLUCOMETER DEV NAME(LOC) 5S.2D; GLUCOSE,POINT OF CARE 133 MG/DL (70-110)
[2024-06-06 04:40] VITALS: BP 125/50; PULSE 56; RESP 18; TEMP 97.6; O2SAT 98
[2024-06-06] MEDS: LevETIRAcetam 250 MG in DEXTROSE 5%-WATER 100 ML IV SCH (06:22)
[2024-06-06 07:00] LABS: BASOPHILS % (AUTO) 3.3 % (0.0-2.0); EOSINOPHILS % (AUTO) 3.4 % (1.0-6.0); HEMOGLOBIN 11.7 g/dL (12.0-16.0); LYMPHOCYTES # (AUTO) 1.7 K/uL (1.0-4.8); LYMPHOCYTES % (AUTO) 33.1 % (22.0-44.0); MEAN CORPUSCULAR HEMOGLOBIN 31.7 pg (26.0-34.0); MEAN CORPUSCULAR HGB CONC 34.4 G/dL (31.0-37.0); MEAN CORPUSCULAR VOLUME 92 fL (80-100); MONOCYTES # (AUTO) 0.4 K/uL (0.1-1.0); MONOCYTES % (AUTO) 7.4 % (2.0-9.0); NEUTROPHILS # (AUTO) 2.7 K/uL (1.8-7.7); NEUTROPHILS % (AUTO) 52.8 % (40.0-70.0); PLATELET COUNT (AUTO) 198 K/uL (150-450); RED BLOOD CELL COUNT(AUTO) 3.68 MIL/uL (4.00-5.20); RED CELL DISTRIBUTION WIDTH 12.6 % (11.5-14.5); WHITE BLOOD COUNT (AUTO) 5.1 K/uL (4.5-11.0)
[2024-06-06 07:14] LABS: ANION GAP 5 mmol/L (8-16); CALCIUM, TOTAL 8.7 mg/dL (8.8-10.5); CARBON DIOXIDE 28 mmol/L (22-29); CHLORIDE 109 mmol/L (98-107); CREATININE 0.47 mg/dL (0.60-1.30); GLOMERULAR FILTR. RATE CALC > 60 mL/min (>60); GLUCOSE,RANDOM 86 mg/dL (70-110); POTASSIUM 3.6 mmol/L (3.5-5.1); SODIUM SERUM 142 mmol/L (136-145); TROPONIN I-HIGH SENSITIVITY 46 ng/L (<51); UREA NITROGEN, BLOOD 11 mg/dL (7-18)
[2024-06-06 07:25] LABS: GLUCOMETER DEV NAME(LOC) 5S.2D; GLUCOSE,POINT OF CARE 78 MG/DL (70-110)
[2024-06-06 07:44] VITALS: BP 117/52; PULSE 54; RESP 18; TEMP 97.5; O2SAT 100
[2024-06-06] MEDS: ASPIRIN 81 MG CHEWABLE TABLET PO SCH (09:00)
[2024-06-06] MEDS: ATORVASTATIN CALCIUM 20 MG TABLET PO SCH (09:00)
[2024-06-06] MEDS: PANTOPRAZOLE SODIUM 40 MG/VIAL IVP SCH (09:07)
[2024-06-06] MEDS: SODIUM CHLORIDE 0.9% 1,000 ML IV ONE (10:51)
[2024-06-06 11:25] VITALS: BP 116/53; PULSE 59; RESP 18; TEMP 97.9; O2SAT 100
[2024-06-06 14:51] VITALS: BP 108/51; PULSE 68; RESP 19; TEMP 98.8; O2SAT 98
[2024-06-06] MEDS: ZONISAMIDE 100 MG CAPSULE PO SCH (16:29)
[2024-06-06] MEDS: ACETAMINOPHEN 325 MG TABLET PO PRN (16:35)
[2024-06-06] MEDS: LACOSAMIDE 200 MG in DEXTROSE 5%-WATER 100 ML IV SCH (17:51)
[2024-06-06 20:50] LABS: GLUCOMETER DEV NAME(LOC) 5N.1D; GLUCOSE,POINT OF CARE 86 MG/DL (70-110)
[2024-06-06 20:51] LABS: GLUCOMETER DEV NAME(LOC) 5S.2D; GLUCOSE,POINT OF CARE 108 MG/DL (70-110)
[2024-06-06 20:51] LABS: GLUCOMETER DEV NAME(LOC) 5S.2D; GLUCOSE,POINT OF CARE 135 MG/DL (70-110)
[2024-06-07] VITALS (7 sets, daily range): BP systolic 93–126; BP diastolic 48–59; PULSE 58–93; RESP 16–18; TEMP 97.2–98.2; O2SAT 98–100
[2024-06-07 06:41] LABS: GLUCOMETER DEV NAME(LOC) 5N.1D; GLUCOSE,POINT OF CARE 87 MG/DL (70-110)
[2024-06-07 08:14] LABS: APPEARANCE,URINE HAZY (CLEAR); BILIRUBIN,URINE NEGATIVE (NEGATIVE); COLOR,URINE LIGHT YELLOW (YELLOW); GLUCOSE, URINE (UA) NEGATIVE (NEGATIVE); KETONES,URINE NEGATIVE (NEGATIVE); LEUKOCYTE ESTERASE ,URINE LARGE (NEGATIVE); NITRATE,URINE POSITIVE (NEGATIVE); OCCULT BLOOD,URINE NEGATIVE (NEGATIVE); PH,URINE 5.5 (5.0-8.0); PH,URINE DRUG SCREEN 5.5 (5.0-8.0); PROTEIN,URINE NEGATIVE (NEGATIVE); SPECIFIC GRAVITIY, URINE 1.009 (1.003-1.030); UROBILINOGEN,URINE <=1.0 mg/dL (<=1.0)
[2024-06-07 08:19] LABS: ALCOHOL, URINE DRUG SCREEN NEGATIVE (NEGATIVE); AMPHET/METH SCREEN,URINE NEGATIVE (NEGATIVE); BARBITURATE SCREEN, URINE NEGATIVE (NEGATIVE); BENZODIAZEPINES SCREEN,URINE NEGATIVE (NEGATIVE); CANNABINOID SCREEN,URINE NEGATIVE (NEGATIVE); COCAINE SCREEN,URINE NEGATIVE (NEGATIVE); METHADONE SCREEN, URINE NEGATIVE (NEGATIVE); OPIATE SCREEN,URINE NEGATIVE (NEGATIVE); PHENCYCLIDINE SCREEN,URINE NEGATIVE (NEGATIVE)
[2024-06-07 08:21] LABS: RBC,URINE None Seen /HPF (0-2)
[2024-06-07 08:22] LABS: BACTERIA,URINE Many /HPF (None Seen)
[2024-06-07] MEDS: CefTRIAXone 1 GM/DEXTROSE 50 ML IV SCH (10:47)
[2024-06-07 20:41] LABS: GLUCOMETER DEV NAME(LOC) 5S.2D; GLUCOSE,POINT OF CARE 89 MG/DL (70-110)
[2024-06-07 20:41] LABS: GLUCOMETER DEV NAME(LOC) 5S.2D; GLUCOSE,POINT OF CARE 114 MG/DL (70-110)
[2024-06-07] MEDS: MELATONIN 3 MG TABLET PO PRN (23:14)
[2024-06-08 03:33] VITALS: BP 141/76; PULSE 58; RESP 20; TEMP 97.8; O2SAT 100
[2024-06-08 04:00] VITALS: RESP 18; O2SAT 99
[2024-06-08 06:06] LABS: GLUCOMETER DEV NAME(LOC) 5N.1D; GLUCOSE,POINT OF CARE 77 MG/DL (70-110)
[2024-06-08 07:11] LABS: GLUCOMETER DEV NAME(LOC) 5S.2D; GLUCOSE,POINT OF CARE 72 MG/DL (70-110)
[2024-06-08 07:11] LABS: GLUCOMETER DEV NAME(LOC) 5S.2D; GLUCOSE,POINT OF CARE 109 MG/DL (70-110)
[2024-06-08 08:31] VITALS: BP 112/50; PULSE 53; RESP 18; TEMP 97.7; O2SAT 100
[2024-06-08 12:47] VITALS: BP 119/52; PULSE 63; RESP 18; TEMP 97.9; O2SAT 100
[2024-06-08 16:58] VITALS: BP 120/46; PULSE 61; RESP 18; TEMP 98.6; O2SAT 100
[2024-06-08 20:42] VITALS: BP 123/48; PULSE 77; RESP 18; TEMP 98.1; O2SAT 98
[2024-06-08] MEDS: LACOSAMIDE 100 MG TABLET PO SCH (21:47)
[2024-06-08] MEDS: INSULIN LISPRO 100 UNITS/ML SQ PRN (21:48)
[2024-06-09] VITALS (7 sets, daily range): BP systolic 114–149; BP diastolic 49–61; PULSE 52–78; RESP 18–19; TEMP 97–98.2; O2SAT 96–100
[2024-06-09 05:50] LABS: GLUCOMETER DEV NAME(LOC) 5N.1D; GLUCOSE,POINT OF CARE 236 MG/DL (70-110)
[2024-06-09 05:55] LABS: GLUCOMETER DEV NAME(LOC) 5S.2D; GLUCOSE,POINT OF CARE 89 MG/DL (70-110)
[2024-06-09 05:55] LABS: GLUCOMETER DEV NAME(LOC) 5S.2D; GLUCOSE,POINT OF CARE 132 MG/DL (70-110)
[2024-06-09 09:15] LABS: GLUCOMETER DEV NAME(LOC) 5N.1D; GLUCOSE,POINT OF CARE 85 MG/DL (70-110)
[2024-06-09 11:03] LABS: BASOPHILS % (AUTO) 0.9 % (0.0-2.0); EOSINOPHILS % (AUTO) 5.1 % (1.0-6.0); HEMATOCRIT 35.5 % (36-46); HEMOGLOBIN 11.8 g/dL (12.0-16.0); LYMPHOCYTES # (AUTO) 1.5 K/uL (1.0-4.8); LYMPHOCYTES % (AUTO) 34.5 % (22.0-44.0); MEAN CORPUSCULAR HEMOGLOBIN 31.8 pg (26.0-34.0); MEAN CORPUSCULAR HGB CONC 33.3 G/dL (31.0-37.0); MEAN CORPUSCULAR VOLUME 96 fL (80-100); MONOCYTES # (AUTO) 0.3 K/uL (0.1-1.0); MONOCYTES % (AUTO) 7.1 % (2.0-9.0); NEUTROPHILS # (AUTO) 2.3 K/uL (1.8-7.7); NEUTROPHILS % (AUTO) 52.4 % (40.0-70.0); PLATELET COUNT (AUTO) 177 K/uL (150-450); RED BLOOD CELL COUNT(AUTO) 3.72 MIL/uL (4.00-5.20); RED CELL DISTRIBUTION WIDTH 12.9 % (11.5-14.5); WHITE BLOOD COUNT (AUTO) 4.4 K/uL (4.5-11.0)
[2024-06-09 11:43] LABS: ANION GAP 8 mmol/L (8-16); CALCIUM, TOTAL 8.6 mg/dL (8.8-10.5); CARBON DIOXIDE 24 mmol/L (22-29); CHLORIDE 109 mmol/L (98-107); CREATININE 0.65 mg/dL (0.60-1.30); GLOMERULAR FILTR. RATE CALC > 60 mL/min (>60); GLUCOSE,RANDOM 130 mg/dL (70-110); POTASSIUM 4.2 mmol/L (3.5-5.1); SODIUM SERUM 141 mmol/L (136-145); UREA NITROGEN, BLOOD 11 mg/dL (7-18)
[2024-06-09 17:51] LABS: GLUCOMETER DEV NAME(LOC) 5N.1D; GLUCOSE,POINT OF CARE 122 MG/DL (70-110)
[2024-06-09 17:51] LABS: GLUCOMETER DEV NAME(LOC) 5N.1D; GLUCOSE,POINT OF CARE 116 MG/DL (70-110)
[2024-06-09] MEDS: BISACODYL 10 MG RECTAL RECTAL SUPPOSITORY PR PRN (21:51)
[2024-06-09 22:15] LABS: GLUCOMETER DEV NAME(LOC) 5N.2C; GLUCOSE,POINT OF CARE 154 MG/DL (70-110)
[2024-06-10 03:24] VITALS: BP 139/57; PULSE 74; RESP 18; TEMP 97.9; O2SAT 98
[2024-06-10 06:10] LABS: GLUCOMETER DEV NAME(LOC) 5N.1D; GLUCOSE,POINT OF CARE 89 MG/DL (70-110)
[2024-06-10 06:19] LABS: BASOPHILS % (AUTO) 0.9 % (0.0-2.0); EOSINOPHILS % (AUTO) 4.6 % (1.0-6.0); HEMATOCRIT 33.2 % (36-46); HEMOGLOBIN 11.4 g/dL (12.0-16.0); LYMPHOCYTES # (AUTO) 1.9 K/uL (1.0-4.8); LYMPHOCYTES % (AUTO) 39.5 % (22.0-44.0); MEAN CORPUSCULAR HEMOGLOBIN 31.8 pg (26.0-34.0); MEAN CORPUSCULAR HGB CONC 34.5 G/dL (31.0-37.0); MEAN CORPUSCULAR VOLUME 92 fL (80-100); MONOCYTES # (AUTO) 0.3 K/uL (0.1-1.0); MONOCYTES % (AUTO) 6.7 % (2.0-9.0); NEUTROPHILS # (AUTO) 2.3 K/uL (1.8-7.7); NEUTROPHILS % (AUTO) 48.3 % (40.0-70.0); PLATELET COUNT (AUTO) 183 K/uL (150-450); RED CELL DISTRIBUTION WIDTH 12.6 % (11.5-14.5); WHITE BLOOD COUNT (AUTO) 4.7 K/uL (4.5-11.0)
[2024-06-10 06:32] LABS: ANION GAP 5 mmol/L (8-16); CALCIUM, TOTAL 8.7 mg/dL (8.8-10.5); CARBON DIOXIDE 27 mmol/L (22-29); CHLORIDE 110 mmol/L (98-107); CREATININE 0.56 mg/dL (0.60-1.30); GLOMERULAR FILTR. RATE CALC > 60 mL/min (>60); GLUCOSE,RANDOM 79 mg/dL (70-110); POTASSIUM 3.8 mmol/L (3.5-5.1); SODIUM SERUM 142 mmol/L (136-145); UREA NITROGEN, BLOOD 12 mg/dL (7-18)
[2024-06-10 08:05] VITALS: BP 137/50; PULSE 65; RESP 17; TEMP 98.4; O2SAT 100
[2024-06-10 16:27] VITALS: BP 137/60; PULSE 71; RESP 18; TEMP 97.5; O2SAT 98
[2024-06-10 17:41] LABS: GLUCOMETER DEV NAME(LOC) 6N.2B; GLUCOSE,POINT OF CARE 89 MG/DL (70-110)
[2024-06-11 10:31] LABS: GLUCOMETER DEV NAME(LOC) 6S.1D; GLUCOSE,POINT OF CARE 190 MG/DL (70-110)
== END 2024-06-10 20:20 | DRG 100 ==
LOC: EMS 17:06 → EDH 19:42 → 5S 21:45 → 6S 06-10 11:05
PROVIDERS: ADMIT Internal Medicine; ATTEND Internal Medicine
DX: G40.909 Epilepsy, unspecified, not intractable, without status epilepticus (principal); J96.01 Acute respiratory failure with hypoxia; N39.0 Urinary tract infection, site not specified; I69.351 Hemiplegia and hemiparesis following cerebral infarction affecting right dominant side; E11.9 Type 2 diabetes mellitus without complications; I10 Essential (primary) hypertension; F01.50 Vascular dementia, unspecified severity, without behavioral disturbance, psychotic disturbance, mood disturbance, and anxiety; I48.0 Paroxysmal atrial fibrillation; B96.20 Unspecified Escherichia coli [E. coli] as the cause of diseases classified elsewhere; Z90.710 Acquired absence of both cervix and uterus; Z88.8 Allergy status to other drugs, medicaments and biological substances; Z90.49 Acquired absence of other specified parts of digestive tract
CPT/HCPCS: 70496; 70498; 71045; 80048; 80053; 80061; 80076; 80307; 81001; 82140; 82550; 82948; 82962; 83036; 83880; 84484; 85025; 85610; 85730; 86850; 86900; 86901; 87077; 87086; 87186; 92610; 93005; 96361; 96365; 96367; 97163; 97530; 99285; C9254; G0378; J0131; J0696; J0712; J1644; J2470; J7030; J7050; J7060; 36415-L1; 36415-TC; 70450; 70450-TC

== ENCOUNTER 2024-08-25 18:52 | Inpatient (IN) | payer OTHER, MEDICARE ==
[~2024-08-25] VITALS: Ht 157.5 cm; Wt 44.0 kg
[~2024-08-25 18:52] MED LIST changes: +APIX2.5T PO; -APIX5TAB PO; +BACL10TA PO; +CITA-144 PO; -ERGO500054 PO; +LACO50TA16 PO; +LOSA-381 PO; -OMEP20CA12 PO; +PANT-31 PO; +[UNRECOGNIZED DRUG - CODE] PO
[2024-08-25 21:41] LABS: COVID AG,FIA SOURCE NASAL SWAB
[2024-08-25 22:09] LABS: CALCIUM, TOTAL 8.7 mg/dL (8.8-10.5); CREATININE 0.71 mg/dL (0.60-1.30); GLOMERULAR FILTR. RATE CALC > 60 mL/min (>60); GLUCOSE,RANDOM 101 mg/dL (70-110); SODIUM SERUM 140 mmol/L (136-145); UREA NITROGEN, BLOOD 12 mg/dL (7-18)
[2024-08-25 22:22] LABS: SARS-COV2 (COVID) ANTIGEN,FIA Negative (Negative)
[2024-08-25] MEDS: LACOSAMIDE 100 MG TABLET PO ONE (22:56)
[2024-08-25] MEDS: APIXABAN 2.5 MG TABLET PO ONE (22:57)
[2024-08-25] MEDS: SODIUM CHLORIDE 0.9% 1,000 ML IV ONE (22:59)
[2024-08-25 23:10] LABS: PLATELET COUNT (AUTO) 223 K/uL (150-450); RED BLOOD CELL COUNT(AUTO) 4.26 MIL/uL (4.00-5.20); RED CELL DISTRIBUTION WIDTH 12.3 % (11.5-14.5); WHITE BLOOD COUNT (AUTO) 5.4 K/uL (4.5-11.0)
[2024-08-25 23:27] LABS: LACTIC ACID 1.6 mmol/L (0.4-2.0)
[2024-08-25 23:45] LABS: APPEARANCE,URINE CLEAR (CLEAR); GLUCOSE, URINE (UA) NEGATIVE (NEGATIVE); LEUKOCYTE ESTERASE ,URINE LARGE (NEGATIVE); NITRATE,URINE NEGATIVE (NEGATIVE); OCCULT BLOOD,URINE TRACE (NEGATIVE); PH,URINE DRUG SCREEN 6.5 (5.0-8.0); SPECIFIC GRAVITIY, URINE 1.011 (1.003-1.030)
[2024-08-25 23:51] LABS: ALCOHOL, URINE DRUG SCREEN NEGATIVE (NEGATIVE); AMPHET/METH SCREEN,URINE NEGATIVE (NEGATIVE); BARBITURATE SCREEN, URINE NEGATIVE (NEGATIVE); CANNABINOID SCREEN,URINE NEGATIVE (NEGATIVE); COCAINE SCREEN,URINE NEGATIVE (NEGATIVE); METHADONE SCREEN, URINE NEGATIVE (NEGATIVE)
[2024-08-26 00:25] LABS: SQUAMOUS EPITHELIAL CELL,UR Few /LPF (None Seen)
[2024-08-26] MEDS: CefTRIAXone 1 GM/DEXTROSE 50 ML IV ONE (00:30)
[2024-08-26] MEDS: LORazepam 2 MG/ML VIAL IVP ONE (01:47)
[2024-08-26] MEDS ORDERED: 0.9% SODIUM CHLORIDE 10 ML SYRINGE IVP PRN (02:00)
[2024-08-26] MEDS: SODIUM CHLORIDE 0.9% 1,100 ML IV ONE (02:39)
[2024-08-26 04:36] VITALS: BP 127/61; PULSE 68; RESP 19; TEMP 96.3; O2SAT 97
[2024-08-26 08:31] LABS: GLUCOMETER DEV NAME(LOC) 5S.1D; GLUCOSE,POINT OF CARE 92 MG/DL (70-110)
[2024-08-26 08:51] LABS: PLATELET COUNT (AUTO) 235 K/uL (150-450); RED BLOOD CELL COUNT(AUTO) 4.46 MIL/uL (4.00-5.20); RED CELL DISTRIBUTION WIDTH 12.4 % (11.5-14.5); WHITE BLOOD COUNT (AUTO) 4.6 K/uL (4.5-11.0)
[2024-08-26] MEDS: DOCUSATE SODIUM 100 MG CAPSULE PO SCH (09:00)
[2024-08-26] MEDS: FAMOTIDINE 20 MG TABLET PO SCH (09:00)
[2024-08-26] MEDS: ATORVASTATIN CALCIUM 20 MG TABLET PO SCH (09:00)
[2024-08-26 09:07] LABS: CALCIUM, TOTAL 8.8 mg/dL (8.8-10.5); CREATININE 0.52 mg/dL (0.60-1.30); GLOMERULAR FILTR. RATE CALC > 60 mL/min (>60); GLUCOSE,RANDOM 87 mg/dL (70-110); SODIUM SERUM 142 mmol/L (136-145); UREA NITROGEN, BLOOD 8 mg/dL (7-18)
[2024-08-26 09:16] VITALS: BP 138/50; PULSE 72; RESP 18; TEMP 96.5; O2SAT 100
[2024-08-26] MEDS: HEPARIN SODIUM,PORCINE 5,000 UNITS/ML VIAL SQ SCH (09:25)
[2024-08-26] MEDS: DEXTROSE 50%-WATER 25 GM/50 ML SYRINGE IVP PRN (12:37)
[2024-08-26] MEDS ORDERED: CITA10TA99 PO (13:37)
[2024-08-26] MEDS ORDERED: ATOR20TA65 PO (13:37)
[2024-08-26] MEDS ORDERED: LACO200T4 PO (13:37)
[2024-08-26 14:01] LABS: GLUCOMETER DEV NAME(LOC) 6S.1D; GLUCOSE,POINT OF CARE 65 MG/DL (70-110)
[2024-08-26 14:06] LABS: GLUCOMETER DEV NAME(LOC) 6S.1D; GLUCOSE,POINT OF CARE 115 MG/DL (70-110)
[2024-08-26] MEDS: DEXTROSE 5%-0.45% SODIUM CHL 1,000 ML IV ONE (15:10)
[2024-08-26 15:54] VITALS: BP 113/57; PULSE 69; RESP 18; TEMP 96.9; O2SAT 99
[2024-08-26 18:30] LABS: GLUCOMETER DEV NAME(LOC) 6S.1D; GLUCOSE,POINT OF CARE 118 MG/DL (70-110)
[2024-08-26] MEDS: ACETAMINOPHEN 325 MG TABLET PO PRN (18:49)
[2024-08-26] MEDS: INSULIN LISPRO 100 UNITS/ML SQ PRN (21:02)
[2024-08-26 21:11] VITALS: BP 102/58
[2024-08-26 21:15] VITALS: PULSE 76; TEMP 97.6
[2024-08-26 22:21] LABS: GLUCOMETER DEV NAME(LOC) 6S.2; GLUCOSE,POINT OF CARE 166 MG/DL (70-110)
[2024-08-26] MEDS ORDERED: SODIUM CHLORIDE 0.9% 250 ML IV ONE (23:49)
[2024-08-26] MEDS: CefTRIAXone 1 GM/DEXTROSE 50 ML IV SCH (23:53)
[2024-08-27] MEDS: ETHYL ALCOHOL 62% ANTISEPTIC NASAL SANITIZER 0.6 ML AMPUL NASAL SCH (08:49)
[2024-08-27 09:35] VITALS: BP 112/69; PULSE 75; RESP 18; TEMP 97.6; O2SAT 100
[2024-08-27] MEDS: MAGNESIUM HYDROXIDE SUSPENSION 30 ML UDCUP PO PRN (14:40)
[2024-08-27 19:36] LABS: GLUCOMETER DEV NAME(LOC) 6S.1D; GLUCOSE,POINT OF CARE 86 MG/DL (70-110)
[2024-08-27 20:15] LABS: GLUCOMETER DEV NAME(LOC) 6N.2C; GLUCOSE,POINT OF CARE 91 MG/DL (70-110)
[2024-08-27 20:20] LABS: GLUCOMETER DEV NAME(LOC) 6S.2; GLUCOSE,POINT OF CARE 81 MG/DL (70-110)
[2024-08-27 20:52] VITALS: BP 126/50; PULSE 68; RESP 18; TEMP 97.5; O2SAT 99
[2024-08-27 23:36] LABS: GLUCOMETER DEV NAME(LOC) 4E.2; GLUCOSE,POINT OF CARE 98 MG/DL (70-110)
[2024-08-28 05:30] VITALS: BP 147/75; PULSE 76; RESP 18; TEMP 97.9; O2SAT 99
[2024-08-28 07:44] VITALS: BP 135/58; PULSE 68; RESP 19; TEMP 97.8; O2SAT 99
[2024-08-28 12:41] LABS: GLUCOMETER DEV NAME(LOC) 6N.1B; GLUCOSE,POINT OF CARE 98 MG/DL (70-110)
[2024-08-28 15:00] VITALS: BP 138/79; PULSE 75; RESP 19; TEMP 98.1; O2SAT 96
[2024-08-28] MEDS ORDERED: MIDAZOLAM HCL 5 MG/ML VIAL ONE (16:35)
[2024-08-28] MEDS ORDERED: LORazepam 2 MG/ML VIAL ONE (16:35)
[2024-08-28 19:09] VITALS: BP 132/60; PULSE 80; RESP 18; TEMP 98.1; O2SAT 96
[2024-08-29] VITALS (7 sets, daily range): BP systolic 104–170; BP diastolic 51–90; PULSE 65–150; RESP 16–19; TEMP 97.3–97.9; O2SAT 86–100
[2024-08-29 01:51] LABS: GLUCOMETER DEV NAME(LOC) 4E.2; GLUCOSE,POINT OF CARE 76 MG/DL (70-110)
[2024-08-29 01:55] LABS: GLUCOMETER DEV NAME(LOC) 4E.2; GLUCOSE,POINT OF CARE 108 MG/DL (70-110)
[2024-08-29 04:06] LABS: GLUCOMETER DEV NAME(LOC) 6N.1B; GLUCOSE,POINT OF CARE 143 MG/DL (70-110)
[2024-08-29 07:50] LABS: PLATELET COUNT (AUTO) 237 K/uL (150-450); RED BLOOD CELL COUNT(AUTO) 4.13 MIL/uL (4.00-5.20); RED CELL DISTRIBUTION WIDTH 12.5 % (11.5-14.5); WHITE BLOOD COUNT (AUTO) 7.5 K/uL (4.5-11.0)
[2024-08-29 07:56] LABS: CALCIUM, TOTAL 8.9 mg/dL (8.8-10.5); CREATININE 0.72 mg/dL (0.60-1.30); GLOMERULAR FILTR. RATE CALC > 60 mL/min (>60); GLUCOSE,RANDOM 137 mg/dL (70-110); SODIUM SERUM 143 mmol/L (136-145); UREA NITROGEN, BLOOD 10 mg/dL (7-18)
[2024-08-29 08:01] LABS: ASPARTATE AMINOTRANSFERASE 23 U/L (15-37); CHOL/HDL RATIO 1.6 (3.9-5.7); LDL CHOL (CALC.) 36 mg/dL (0-130); TOTAL PROTEIN, SERUM 6.5 g/dL (6.4-8.2)
[2024-08-29 08:03] LABS: TROPONIN I-HIGH SENSITIVITY 29 ng/L (<51)
[2024-08-29] MEDS ORDERED: 0.9% SODIUM CHLORIDE 10 ML SYRINGE IVP PRN (08:30)
[2024-08-29] MEDS: LevETIRAcetam 1,000 MG in DEXTROSE 5%-WATER 100 ML IV SCH (08:57)
[2024-08-29] MEDS: LACOSAMIDE 200 MG in DEXTROSE 5%-WATER 100 ML IV SCH (08:57)
[2024-08-29] MEDS: SODIUM CHLORIDE 0.9% 1,350 ML IV ONE (08:57)
[2024-08-29 09:11] LABS: LACTIC ACID 5.4 mmol/L (0.4-2.0)
[2024-08-29 09:18] LABS: ALCOHOL, URINE DRUG SCREEN NEGATIVE (NEGATIVE); AMPHET/METH SCREEN,URINE NEGATIVE (NEGATIVE); BARBITURATE SCREEN, URINE NEGATIVE (NEGATIVE); CANNABINOID SCREEN,URINE NEGATIVE (NEGATIVE); COCAINE SCREEN,URINE NEGATIVE (NEGATIVE); METHADONE SCREEN, URINE NEGATIVE (NEGATIVE)
[2024-08-29 09:21] LABS: APPEARANCE,URINE CLEAR (CLEAR); GLUCOSE, URINE (UA) NEGATIVE (NEGATIVE); LEUKOCYTE ESTERASE ,URINE LARGE (NEGATIVE); NITRATE,URINE NEGATIVE (NEGATIVE); OCCULT BLOOD,URINE NEGATIVE (NEGATIVE); PH,URINE DRUG SCREEN 7.0 (5.0-8.0); SPECIFIC GRAVITIY, URINE 1.011 (1.003-1.030)
[2024-08-29 09:46] LABS: SQUAMOUS EPITHELIAL CELL,UR Rare /LPF (None Seen)
[2024-08-29 12:16] LABS: GLUCOMETER DEV NAME(LOC) 6N.1B; GLUCOSE,POINT OF CARE 122 MG/DL (70-110)
[2024-08-29 12:16] LABS: GLUCOMETER DEV NAME(LOC) 6N.1B; GLUCOSE,POINT OF CARE 75 MG/DL (70-110)
[2024-08-29 17:07] LABS: TROPONIN I-HIGH SENSITIVITY 68 ng/L (<51)
[2024-08-29 17:35] LABS: GLUCOMETER DEV NAME(LOC) 5N.1D; GLUCOSE,POINT OF CARE 83 MG/DL (70-110)
[2024-08-29 22:20] LABS: TROPONIN I-HIGH SENSITIVITY 47 ng/L (<51)
[2024-08-30 03:24] VITALS: BP 120/72; PULSE 67; RESP 18; TEMP 97.7; O2SAT 98
[2024-08-30 08:26] VITALS: BP 105/49; PULSE 74; RESP 18; TEMP 97.7; O2SAT 98
[2024-08-30 11:28] VITALS: BP 107/60; PULSE 69; RESP 19; TEMP 98.1; O2SAT 100
[2024-08-30 11:30] LABS: GLUCOMETER DEV NAME(LOC) 5S.2D; GLUCOSE,POINT OF CARE 87 MG/DL (70-110)
[2024-08-30 11:30] LABS: GLUCOMETER DEV NAME(LOC) 5N.1D; GLUCOSE,POINT OF CARE 73 MG/DL (70-110)
[2024-08-30 12:10] LABS: GLUCOMETER DEV NAME(LOC) 5N.1D; GLUCOSE,POINT OF CARE 91 MG/DL (70-110)
[2024-08-30 12:31] LABS: PLATELET COUNT (AUTO) 209 K/uL (150-450); RED BLOOD CELL COUNT(AUTO) 4.33 MIL/uL (4.00-5.20); RED CELL DISTRIBUTION WIDTH 12.3 % (11.5-14.5); WHITE BLOOD COUNT (AUTO) 4.3 K/uL (4.5-11.0)
[2024-08-30 12:42] LABS: CALCIUM, TOTAL 8.7 mg/dL (8.8-10.5); CREATININE 0.59 mg/dL (0.60-1.30); GLOMERULAR FILTR. RATE CALC > 60 mL/min (>60); GLUCOSE,RANDOM 90 mg/dL (70-110); SODIUM SERUM 141 mmol/L (136-145); UREA NITROGEN, BLOOD 6 mg/dL (7-18)
[2024-08-30 12:47] LABS: ASPARTATE AMINOTRANSFERASE 38 U/L (15-37); TOTAL PROTEIN, SERUM 6.6 g/dL (6.4-8.2)
[2024-08-30] MEDS: LORazepam 2 MG/ML VIAL IVP ONE (15:13)
[2024-08-30] MEDS: LORazepam 2 MG/ML VIAL IVP PRN (15:14)
[2024-08-30 15:20] VITALS: BP 112/62; PULSE 79; RESP 18; TEMP 98.1; O2SAT 98
[2024-08-30] MEDS ORDERED: ACETAMINOPHEN 325 MG TABLET PO PRN (17:15)
[2024-08-30 17:50] LABS: GLUCOMETER DEV NAME(LOC) 5N.1D; GLUCOSE,POINT OF CARE 98 MG/DL (70-110)
[2024-08-30 20:00] VITALS: BP 115/72; PULSE 117; RESP 18; TEMP 97.7; O2SAT 98
[2024-08-30] MEDS ORDERED: SODIUM CHLORIDE 0.9% 250 ML IV ONE (21:37)
[2024-08-30 22:06] LABS: PLATELET COUNT (AUTO) 203 K/uL (150-450); RED BLOOD CELL COUNT(AUTO) 3.71 MIL/uL (4.00-5.20); RED CELL DISTRIBUTION WIDTH 12.4 % (11.5-14.5); WHITE BLOOD COUNT (AUTO) 6.5 K/uL (4.5-11.0)
[2024-08-30 22:18] LABS: TROPONIN I-HIGH SENSITIVITY 34 ng/L (<51)
[2024-08-30] MEDS: RINGERS SOLUTION,LACTATED 500 ML IV ONE (22:18)
[2024-08-30 22:28] LABS: CALCIUM, TOTAL 8.3 mg/dL (8.8-10.5); CREATININE 0.54 mg/dL (0.60-1.30); GLOMERULAR FILTR. RATE CALC > 60 mL/min (>60); GLUCOSE,RANDOM 164 mg/dL (70-110); SODIUM SERUM 141 mmol/L (136-145); UREA NITROGEN, BLOOD 8 mg/dL (7-18)
[2024-08-30 22:33] LABS: ASPARTATE AMINOTRANSFERASE 27 U/L (15-37); TOTAL PROTEIN, SERUM 5.8 g/dL (6.4-8.2)
[2024-08-30] MEDS: DIGOXIN 250 MCG/ML 2 ML AMP IVP ONE (23:18)
[2024-08-31] VITALS: BP 95/53; PULSE 132; RESP 18; TEMP 98.3; O2SAT 99
[2024-08-31 00:10] LABS: GLUCOMETER DEV NAME(LOC) ICU.S6; GLUCOSE,POINT OF CARE 132 MG/DL (70-110)
[2024-08-31 02:35] LABS: GLUCOMETER DEV NAME(LOC) 5S.2D; GLUCOSE,POINT OF CARE 182 MG/DL (70-110)
[2024-08-31 03:26] LABS: GLUCOMETER DEV NAME(LOC) 5N.1D; GLUCOSE,POINT OF CARE 98 MG/DL (70-110)
[2024-08-31 04:00] VITALS: BP 96/51; PULSE 112; RESP 18; TEMP 98.8; O2SAT 99
[2024-08-31 05:55] LABS: PLATELET COUNT (AUTO) 213 K/uL (150-450); RED BLOOD CELL COUNT(AUTO) 4.08 MIL/uL (4.00-5.20); RED CELL DISTRIBUTION WIDTH 12.3 % (11.5-14.5); WHITE BLOOD COUNT (AUTO) 4.9 K/uL (4.5-11.0)
[2024-08-31 06:02] LABS: CALCIUM, TOTAL 8.3 mg/dL (8.8-10.5); CREATININE 0.62 mg/dL (0.60-1.30); GLOMERULAR FILTR. RATE CALC > 60 mL/min (>60); GLUCOSE,RANDOM 94 mg/dL (70-110); SODIUM SERUM 141 mmol/L (136-145); UREA NITROGEN, BLOOD 6 mg/dL (7-18)
[2024-08-31 06:13] LABS: TROPONIN I-HIGH SENSITIVITY 198 ng/L (<51)
[2024-08-31 06:50] LABS: GLUCOMETER DEV NAME(LOC) ICUN.6; GLUCOSE,POINT OF CARE 86 MG/DL (70-110)
[2024-08-31 08:00] VITALS: BP 104/50; PULSE 80; RESP 16; TEMP 98.3; O2SAT 96
[2024-08-31] MEDS: APIXABAN 2.5 MG TABLET PO SCH (09:00)
[2024-08-31] MEDS ORDERED: SODIUM CHLORIDE 0.9% 250 ML IV ONE (09:09)
[2024-08-31 12:00] VITALS: BP 135/44; PULSE 72; RESP 18; TEMP 98.3; O2SAT 99
[2024-08-31] MEDS ORDERED: DILTIAZEM HCL 5 MG/ML 5 ML VIAL IVP ONE (12:00)
[2024-08-31 16:00] VITALS: BP 109/42; PULSE 73; RESP 18; O2SAT 99
[2024-08-31 16:31] LABS: GLUCOMETER DEV NAME(LOC) ICUN.6; GLUCOSE,POINT OF CARE 80 MG/DL (70-110)
[2024-08-31 20:00] VITALS: BP 133/61; PULSE 82; RESP 19; TEMP 98.5; O2SAT 97
[2024-08-31 22:00] LABS: GLUCOMETER DEV NAME(LOC) ICU.S6; GLUCOSE,POINT OF CARE 75 MG/DL (70-110)
[2024-09-01] VITALS: BP 129/58; PULSE 73; RESP 13; TEMP 98.6; O2SAT 96
[2024-09-01 00:46] LABS: GLUCOMETER DEV NAME(LOC) ICU.S6; GLUCOSE,POINT OF CARE 84 MG/DL (70-110)
[2024-09-01 04:00] VITALS: BP 146/65; PULSE 74; RESP 12; TEMP 98.5; O2SAT 98
[2024-09-01 05:37] LABS: PLATELET COUNT (AUTO) 181 K/uL (150-450); RED BLOOD CELL COUNT(AUTO) 4.07 MIL/uL (4.00-5.20); RED CELL DISTRIBUTION WIDTH 12.3 % (11.5-14.5); WHITE BLOOD COUNT (AUTO) 4.4 K/uL (4.5-11.0)
[2024-09-01 05:40] LABS: CALCIUM, TOTAL 8.9 mg/dL (8.8-10.5); CREATININE 0.53 mg/dL (0.60-1.30); GLOMERULAR FILTR. RATE CALC > 60 mL/min (>60); GLUCOSE,RANDOM 72 mg/dL (70-110); SODIUM SERUM 141 mmol/L (136-145); UREA NITROGEN, BLOOD 8 mg/dL (7-18)
[2024-09-01 06:21] LABS: TROPONIN I-HIGH SENSITIVITY 278 ng/L (<51)
[2024-09-01 06:25] LABS: GLUCOMETER DEV NAME(LOC) ICU.S6; GLUCOSE,POINT OF CARE 70 MG/DL (70-110)
[2024-09-01 08:00] VITALS: BP 145/73; PULSE 77; PULSE 83; RESP 13; TEMP 97.1; O2SAT 96
[2024-09-01 09:11] LABS: GLUCOMETER DEV NAME(LOC) ICU.S6; GLUCOSE,POINT OF CARE 57 MG/DL (70-110)
[2024-09-01 09:11] LABS: GLUCOMETER DEV NAME(LOC) ICU.S6; GLUCOSE,POINT OF CARE 135 MG/DL (70-110)
[2024-09-01] MEDS: POTASSIUM CHLORIDE 20 MEQ ER TABLET PO PRN (09:43)
[2024-09-01] MEDS: POTASSIUM CHL 10 MEQ/WATER 50 ML IV PRN (10:31)
[2024-09-01 12:00] VITALS: BP 148/99; PULSE 75; RESP 14; TEMP 97.8; O2SAT 97
[2024-09-01 13:41] LABS: GLUCOMETER DEV NAME(LOC) ICUN.6; GLUCOSE,POINT OF CARE 135 MG/DL (70-110)
[2024-09-01 16:00] VITALS: BP 140/66; PULSE 81; RESP 17; TEMP 98; O2SAT 98
[2024-09-01 17:15] LABS: GLUCOMETER DEV NAME(LOC) ICU.S7; GLUCOSE,POINT OF CARE 181 MG/DL (70-110)
[2024-09-01 20:00] VITALS: BP 137/76; PULSE 81; RESP 16; TEMP 98.8; O2SAT 91
[2024-09-01 21:05] LABS: GLUCOMETER DEV NAME(LOC) ICUN.6; GLUCOSE,POINT OF CARE 110 MG/DL (70-110)
[2024-09-01] MEDS ORDERED: SODIUM CHLORIDE 0.9% 250 ML IV ONE (21:24)
[2024-09-02] VITALS: BP 142/80; PULSE 88; RESP 16; TEMP 98.4; O2SAT 91
[2024-09-02 01:37] VITALS: BP 110/62; PULSE 85; RESP 17; TEMP 97.5; O2SAT 99
[2024-09-02] MEDS ORDERED: SODIUM CHLORIDE 0.9% 500 ML IV ONE (01:52)
[2024-09-02 05:24] VITALS: BP 101/56; PULSE 80; RESP 16; TEMP 98.4; O2SAT 98
[2024-09-02 05:50] LABS: GLUCOMETER DEV NAME(LOC) 5S.1D; GLUCOSE,POINT OF CARE 92 MG/DL (70-110)
[2024-09-02 06:02] LABS: PLATELET COUNT (AUTO) 202 K/uL (150-450); RED BLOOD CELL COUNT(AUTO) 3.45 MIL/uL (4.00-5.20); RED CELL DISTRIBUTION WIDTH 12.1 % (11.5-14.5); WHITE BLOOD COUNT (AUTO) 4.8 K/uL (4.5-11.0)
[2024-09-02 06:14] LABS: CALCIUM, TOTAL 8.3 mg/dL (8.8-10.5); CREATININE 0.43 mg/dL (0.60-1.30); GLOMERULAR FILTR. RATE CALC > 60 mL/min (>60); GLUCOSE,RANDOM 83 mg/dL (70-110); SODIUM SERUM 144 mmol/L (136-145); UREA NITROGEN, BLOOD 7 mg/dL (7-18)
[2024-09-02 14:00] LABS: GLUCOMETER DEV NAME(LOC) 5S.2D; GLUCOSE,POINT OF CARE 110 MG/DL (70-110)
[2024-09-02] MEDS ORDERED: CEFT1VIA65 IM (14:38)
[2024-09-02] MEDS ORDERED: CEFT1VIA65 IV (14:39)
[2024-09-02] MEDS ORDERED: LEVE500T8 PO (14:42)
[2024-09-02 16:46] VITALS: BP 108/44; PULSE 92; RESP 18; TEMP 97.7; O2SAT 96
== END 2024-09-02 18:00 | DRG 91 ==
LOC: EMS 18:52 → EDH 08-26 00:37 → 5S 08-26 04:05 → 6S 08-26 10:55 → 4E 08-27 18:05 → 5S 08-29 11:30 → ICU 08-30 23:07 → 5S 09-02 01:14
PROVIDERS: ADMIT Internal Medicine; ATTEND Internal Medicine
PROC: 05H933Z Insertion of Infusion Device into Right Brachial Vein, Percutaneous Approach (ICD-10-PCS; principal; 2024-08-26)
PROC: B54MZZA Ultrasonography of Right Upper Extremity Veins, Guidance (ICD-10-PCS; 2024-08-26)
DX: G92.8 Other toxic encephalopathy (principal); E43 Unspecified severe protein-calorie malnutrition; R53.2 Functional quadriplegia; N39.0 Urinary tract infection, site not specified; Z68.1 Body mass index [BMI] 19.9 or less, adult; I69.351 Hemiplegia and hemiparesis following cerebral infarction affecting right dominant side; Z20.822 Contact with and (suspected) exposure to COVID-19; B96.4 Proteus (mirabilis) (morganii) as the cause of diseases classified elsewhere; E11.9 Type 2 diabetes mellitus without complications; I48.91 Unspecified atrial fibrillation; B96.20 Unspecified Escherichia coli [E. coli] as the cause of diseases classified elsewhere; F01.B0 Vascular dementia, moderate, without behavioral disturbance, psychotic disturbance, mood disturbance, and anxiety; I10 Essential (primary) hypertension; G40.901 Epilepsy, unspecified, not intractable, with status epilepticus; Z79.01 Long term (current) use of anticoagulants; Z79.899 Other long term (current) drug therapy; Z90.710 Acquired absence of both cervix and uterus; Z90.49 Acquired absence of other specified parts of digestive tract; Z88.6 Allergy status to analgesic agent
CPT/HCPCS: 36245; 36569; 70496; 70498; 70551; 71045; 76937; 80048; 80053; 80061; 80307; 81001; 82248; 82948; 82962; 83036; 83605; 83735; 83880; 84132; 84145; 84484; 85025; 85379; 85610; 85730; 86850; 86900; 86901; 87040; 87077; 87081; 87086; 87186; 92526; 92610; 93005; 95816; 97163; 97167; 97530; 97535; 99291; C9254; G0378; G0480; J0696; J0712; J1160; J1644; J2060; J2250; J3480; J3490; J7030; J7040; J7050; J7060; J7120; 36415-L1; 36415-TC; 70450; 70450-TC